=== PATIENT | female | born 1980 | race Caucasian/White ===

== ENCOUNTER 2020-01-08 21:17 | Emergency (ER) | payer SELFPAY ==
[2020-01-08] MEDS ORDERED: NA CHLORIDE 0.9% 1,000 ML ONE (21:51)
[2020-01-08 22:30] LABS: Absolute Lymphocytes (CBC) 2.9 K/uL (0.7-4.9); Basophils % 0.4 % (0-1.3); Hematocrit 36.3 % (36.0-45.0); Lymphocytes % 29.2 % (15.3-44.8); MPV 7.9 fL (7.6-11.3); RBC Red Blood Cell Count 4.27 M/uL (3.86-4.86)
[2020-01-08 22:36] LABS: Protime INR 0.96
[2020-01-08 22:57] LABS: ALT/SGPT 26 U/L (12-78); AST/SGOT 14 U/L (15-37); Albumin 3.2 g/dL (3.4-5.0); Alkaline Phosphatase 69 U/L (45-117); BUN Blood Urea Nitrogen 11 mg/dL (7-18); Bicarbonate 27 mmol/L (21-32); Bilirubin Direct < 0.1 mg/dL (0-0.2); Bilirubin Total 0.3 mg/dL (0.2-1.0); Glucose Level 84 mg/dL (74-106); Potassium 3.2 mmol/L (3.5-5.1); Protein, Total 7.7 g/dL (6.4-8.2); Sodium Level 136 mmol/L (136-145)
[2020-01-08] MEDS ORDERED: POTASSIUM 25 MEQ EFFERV TAB ONE (23:29)
[2020-01-08] MEDS ORDERED: NA CHLORIDE 0.9% 100 ML IV ONE (23:29)
[2020-01-08] MEDS ORDERED: LEVETIRACETAM 500 MG/5 ML VIAL IV ONE (23:29)
[2020-01-09] MEDS ORDERED: NA CHLORIDE 0.9% 1,000 ML ONE (00:16)
--- NOTE | 2020-01-09 00:30 | EDPHYS ---
Physician Documentation [facility] Name: Hodan Quinonez Age: 39 yrs Sex: Female : 1980 Arrival Date: 01/08/2020 Time: 21:19 Bed 6 Private MD: Ryan Salazar HPI: 01/07 22:54 This 39 yrs old Female presents to ER via EMS with complaints of Seizure. darshan 22:54 The patient presents after having a single isolated seizure. Character of seizure(s): darshan Loss of consciousness: the patient experienced loss of consciousness, Motor activity: generalized. Seizure onset: just prior to arrival. Context: the seizure(s) was witnessed, by no one. Seizure Hx: the patient has no previous seizure history. Associated injury: The patient did not suffer any apparent associated injury. EMS care: none. Current symptoms: Currently, the patient is not experiencing any symptoms, the patient feels back to baseline. The patient has experienced similar episodes in the past, several times. 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 - Social history:: Smoking status: Patient reports the use of cigarette tobacco products, smokes one pack cigarettes per day. Patient uses street drugs, heroin, Patient/guardian denies using alcohol. - Family history:: not pertinent. ROS: 22:54 Constitutional: Negative for fever, chills, and weight loss, Eyes: Negative for injury, darshan pain, redness, and discharge, ENT: Negative for injury, pain, and discharge, Neck: Negative for injury, pain, and swelling, Cardiovascular: Negative for chest pain, palpitations, and edema, Respiratory: Negative for shortness of breath, cough, wheezing, and pleuritic chest pain, Abdomen/GI: Negative for abdominal pain, nausea, vomiting, diarrhea, and constipation, Back: Negative for injury and pain, : Negative for injury, bleeding, discharge, and swelling, MS/Extremity: Negative for injury and deformity, Skin: Negative for injury, rash, and discoloration, Psych: Negative for depression, anxiety, suicide ideation, homicidal ideation, and hallucinations, Allergy/Immunology: Negative for hives, rash, and allergies, Endocrine: Negative for neck swelling, polydipsia, polyuria, polyphagia, and marked weight changes, Hematologic/Lymphatic: Negative for swollen nodes, abnormal bleeding, and unusual bruising. 22:54 Neuro: Positive for seizure activity. Exam: 22:54 Constitutional: This is a well developed, well nourished patient who is awake, alert, darshan and in no acute distress. Head/Face: Normocephalic, atraumatic. Eyes: Pupils equal round and reactive to light, extra-ocular motions intact. Lids and lashes normal. Conjunctiva and sclera are non-icteric and not injected. Cornea within normal limits. Periorbital areas with no swelling, redness, or edema. ENT: Nares patent. No nasal discharge, no septal abnormalities noted. Tympanic membranes are normal and external auditory canals are clear. Oropharynx with no redness, swelling, or masses, exudates, or evidence of obstruction, uvula midline. Mucous membranes moist. Neck: Trachea midline, no thyromegaly or masses palpated, and no cervical lymphadenopathy. Supple, full range of motion without nuchal rigidity, or vertebral point tenderness. No Meningismus. Chest/axilla: Normal chest wall appearance and motion. Nontender with no deformity. No lesions are appreciated. Cardiovascular: Regular rate and rhythm with a normal S1 and S2. No gallops, murmurs, or rubs. Normal PMI, no JVD. No pulse deficits. Respiratory: Lungs have equal breath sounds bilaterally, clear to auscultation and percussion. No rales, rhonchi or wheezes noted. No increased work of breathing, no retractions or nasal flaring. Abdomen/GI: Soft, non-tender, with normal bowel sounds. No distension or tympany. No guarding or rebound. No evidence of tenderness throughout. Back: No spinal tenderness. No costovertebral tenderness. Full range of motion. Female : Normal external genitalia. Skin: Warm, dry with normal turgor. Normal color with no rashes, no lesions, and no evidence of cellulitis. MS/ Extremity: Pulses equal, no cyanosis. Neurovascular intact. Full, normal range of motion. Neuro: Awake and alert, GCS 15, oriented to person, place, time, and situation. Cranial nerves II-XII grossly intact. Motor strength 5/5 in all extremities. Sensory grossly intact. Cerebellar exam normal. Normal gait. Psych: Awake, alert, with orientation to person, place and time. Behavior, mood, and affect are within normal limits. 01/08 00:13 ECG was reviewed by the Attending Physician. [facility] Vital Signs: 01/07 21:15 BP 140 / 83; Pulse 92; Resp 16; Temp 98.3; Pulse Ox 100% ; Weight 77.11 kg; Pain 5/10; rr5 23:00 BP 131 / 78; Pulse 76; Resp 16; Pulse Ox 100% ; rr5 23:45 BP 124 / 77; Pulse 78; Resp 16; Pulse Ox 100% on R/A; lp1 01/08 00:30 BP 118 / 77; Pulse 76; Resp 16; Pulse Ox 99% on R/A; lp1 01:30 BP 114 / 76; Pulse 76; Resp 14; Pulse Ox 100% on R/A; lp1 Marilyn Coma Score: 01/07 21:30 Eye Response: spontaneous(4). Verbal Response: oriented(5). Motor Response: obeys lp1 commands(6). Total: 15. MDM: 21:34 Patient medically screened. darshan 22:56 Differential diagnosis: drug overdose, cardiac arrhythmia, seizure. Data reviewed: [facility] vital signs, nurses notes, lab test result(s), EKG. Data interpreted: monitoring engineer: rate is 92 beats/min, rhythm is regular, Pulse oximetry: on room air is 100 %. Test interpretation: by ED physician or midlevel provider: ECG, plain radiologic studies. Counseling: I had a detailed discussion with the patient and/or guardian regarding: the historical points, exam findings, and any diagnostic results supporting the discharge/admit diagnosis, lab results, radiology results, the need for outpatient follow up, for definitive care, a neurologist. 01/07 21:37 Order name: Acetaminophen; Complete Time: 22:59 [facility] 01/07 21:37 Order name: Basic Metabolic Panel; Complete Time: 22:59 [facility] 01/07 21:37 Order name: CBC with Diff; Complete Time: 22:54 [facility] 01/07 21:37 Order name: ETOH Level; Complete Time: 22:59 [facility] 01/07 21:37 Order name: Hepatic Function; Complete Time: 22:59 [facility] 01/07 21:37 Order name: PT-INR; Complete Time: 22:54 [facility] 01/07 21:37 Order name: Ptt, Activated; Complete Time: 22:54 [facility] 01/07 21:37 Order name: Salicylate; Complete Time: 22:54 [facility] 01/07 21:37 Order name: Urine Drug Screen [facility] 01/08 00:29 Order name: Urine Culture [facility] 01/08 00:32 Order name: Urine Dipstick--Ancillary (enter results) [facility] 01/08 00:32 Order name: Urine --Ancillary (enter results) [facility] 01/07 21:37 Order name: Urine Test (obtain specimen); Complete Time: 00:33 [facility] 01/07 21:37 Order name: EKG; Complete Time: 21:37 [facility] 01/07 21:37 Order name: EKG - Nurse/Tech; Complete Time: 21:47 [facility] 01/07 21:37 Order name: IV Saline Lock; Complete Time: 22:23 [facility] 01/07 21:37 Order name: Labs collected and sent; Complete Time: 22:23 [facility] 01/07 21:37 Order name: Urine Dipstick-Ancillary (obtain specimen); Complete Time: 00:33 [facility] 01/07 21:37 Order name: Seizure Precautions; Complete Time: 21:41 [facility] EC/03 00:13 Rate is 81 beats/min. Rhythm is regular. QRS [place] is Normal. [place] interval is normal. QRS darshan interval is normal. QT interval is normal. No Q waves. T waves are Normal. No ST changes noted. Clinical impression: NSR w/ Non-specific ST/T Changes and No evidence of ischemia. Interpreted by me. Reviewed by me. Administered Medications: 01/07 22:21 Drug: NS 0.9% 1000 ml Route: IV; Rate: 1 bolus; Site: right upper arm; bb 01/08 00:07 Follow up: IV Status: Completed infusion; IV Intake: 1000ml lp1 01/07 23:20 Drug: Keppra 1000 mg Route: IV; Rate: per protocol; Site: right upper arm; lp1 23:41 Follow up: IV Status: Completed infusion lp1 23:20 Drug: Potassium Effervescent Tablet 25 mEq Route: PO; lp1 01/08 00:31 Follow up: Response: No adverse reaction lp1 01/07 23:36 Not Given (Med not available): Trileptal 600 mg PO once lp1 01/08 00:04 Drug: NS 0.9% 1000 ml Route: IV; Rate: 1 bolus; Site: right upper arm; lp1 01:10 Follow up: IV Status: Completed infusion; IV Intake: 1000ml lp1 00:33 Drug: Rocephin 1 grams Route: IV; Rate: per protocol; Site: right upper arm; lp1 01:33 Follow up: Response: No adverse reaction; IV Status: Completed infusion; IV Intake: [id number] 00:33 Drug: Cipro 500 mg Route: PO; lp1 01:33 Follow up: Response: No adverse reaction lp1 Disposition: 01/09/20 00:29 Discharged to Home. Impression: Epilepsy and recurrent seizures, Hypokalemia, Urinary tract infection, site not specified. - Condition is Stable. - Discharge Instructions: Potassium Content of Foods, Seizure, Adult, Urinary Tract Infection, Adult, Urinary Tract Infection, Adult, [id number], Seizure, Adult, [id number], Hypokalemia. - Prescriptions for Keppra 500 mg Oral Tablet - take 1 tablet by ORAL route every 12 hours; 20 tablet. Cipro 250 mg Oral Tablet - take 1 tablet by ORAL route every 12 hours; 14 tablet. - Medication Reconciliation Form, Thank You Letter, Antibiotic Education, Prescription Opioid Use form. - Follow up: Private Physician; When: 2 - 3 days; Reason: Recheck today's complaints, Continuance of care, Re-evaluation by your physician. Follow up: Jean Marie Servin; When: 2 - 3 days; Reason: Recheck today's complaints, Re-evaluation by your physician. - Problem is new. - Symptoms have improved. Signatures: Dispatcher [employer] EDMS Ryan Bauer MD MD cha Ballard, Brenda RN RN bb Annette Edward RN RN lp1 Armand Whatley RN RN rr5 Corrections: (The following items were deleted from the chart) 02:30 00:29 01/09/2020 00:29 Discharged to Home. Impression: Epilepsy and recurrent seizures; lp1 Hypokalemia; Urinary tract infection, site not specified. Condition is Stable. Discharge Instructions: Seizure, Adult, Seizure, Adult, Eoro-om-Cixx, Potassium Content of Foods, Hypokalemia. Prescriptions for Keppra 500 mg Oral Tablet - take 1 tablet by ORAL route every 12 hours; 20 tablet. and Forms are Medication Reconciliation Form, Thank You Letter, Antibiotic Education, Prescription Opioid Use. Follow up: Private Physician; When: 2 - 3 days; Reason: Recheck today's complaints, Continuance of care, Re-evaluation by your physician. Follow up: Jean Marie Servin; When: 2 - 3 days; Reason: Recheck today's complaints, Re-evaluation by your physician. Problem is new. Symptoms have improved. darshan
--- NOTE | 2020-01-09 00:30 | ER ---
Nurse's Notes [facility] Name: Hodan Quinonez Age: 39 yrs Sex: Female : 1980 Arrival Date: 01/08/2020 Time: 21:19 Bed 6 Private MD: Diagnosis: Epilepsy and recurrent seizures;Hypokalemia;Urinary tract infection, site not specified Presentation: 01/07 21:15 Chief complaint: EMS states: patient had 2 episodes of witnessed seizure 20 minutes ago rr5 in [facility]. lasted approximate 4 minutes each seizure. 21:15 Coronavirus screen: Client denies travel out of the [place] in the last 14 days. At this rr5 time, the client does not indicate any symptoms associated with coronavirus-19. The client reports previous COVID testing was negative. a week ago. Ebola Screen: Patient negative for fever greater than or equal to 101.5 degrees Fahrenheit, and additional compatible Ebola Virus Disease symptoms Patient denies exposure to infectious person. Patient denies travel to an Ebola-affected area in the 21 days before illness onset. Initial Sepsis Screen: Does the patient meet any 2 criteria? No. Patient's initial sepsis screen is negative. Does the patient have a suspected source of infection? No. Patient's initial sepsis screen is negative. Risk Assessment: Do you want to hurt yourself or someone else? Patient reports no desire to harm self or others. Onset of symptoms was January 08, 2020. 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 - Social history:: Smoking status: Patient reports the use of cigarette tobacco products, smokes one pack cigarettes per day. Patient uses street drugs, heroin, Patient/guardian denies using alcohol. - Family history:: not pertinent. Screenin:29 Abuse screen: Denies threats or abuse. Denies injuries from another. Nutritional rr5 screening: No deficits noted. Tuberculosis screening: No symptoms or risk factors identified. Fall Risk Secondary diagnosis (15 points) seizures, IV access (20 points). Total [place] Fall Scale indicates Low Risk Score (25-44 pts). Fall prevention measures have been instituted. Side Rails Up X 2 Frequent Obs/Assesments occuring As available Patient and Family Educated on Fall Prevention Program and strategies. Assessment: 21:28 General: Appears in no apparent distress. comfortable, Behavior is calm, cooperative, rr5 appropriate for age. Pain: Complains of pain in right leg and left leg Pain currently is 5 out of 10 on a pain scale. Quality of pain is described as aching, Is intermittent. Neuro: Level of Consciousness is awake, alert, obeys commands, Oriented to person, place, time, situation. Cardiovascular: Capillary refill < 3 seconds Patient's skin is warm and dry. Respiratory: Airway is patent Respiratory effort is even, unlabored, Respiratory pattern is regular, symmetrical. GI: No signs and/or symptoms were reported involving the gastrointestinal system. : No signs and/or symptoms were reported regarding the genitourinary system. EENT: No signs and/or symptoms were reported regarding the EENT system. Derm: Skin is intact, is healthy with good turgor, Skin temperature is warm. Musculoskeletal: Circulation, motion, and sensation intact. Capillary refill < 3 seconds, Reports pain in right leg and left leg. 22:30 Reassessment: Patient appears in no apparent distress at this time. Patient and/or lp1 family updated on plan of care and expected duration. Pain level reassessed. Patient resting, eyes closed, respirations even, unlabored. 23:30 Reassessment: Patient appears in no apparent distress at this time. Patient and/or lp1 family updated on plan of care and expected duration. Pain level reassessed. Patient is alert, oriented x 3, equal unlabored respirations, skin warm/dry/pink. Patient aware of need for urine sample. 01/08 00:30 Reassessment: Patient appears in no apparent distress at this time. Assisted patient to [facility] bathroom via . 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 02:00 Reassessment: Patient appears in no apparent distress at this time. Patient is alert, lp1 oriented x 3, equal unlabored respirations, skin warm/dry/pink. Neuro: Gait is steady. Vital Signs: 01/07 21:15 BP 140 / 83; Pulse 92; Resp 16; Temp 98.3; Pulse Ox 100% ; Weight 77.11 kg; Pain 5/10; rr5 23:00 BP 131 / 78; Pulse 76; Resp 16; Pulse Ox 100% ; rr5 23:45 BP 124 / 77; Pulse 78; Resp 16; Pulse Ox 100% on R/A; lp1 01/08 00:30 BP 118 / 77; Pulse 76; Resp 16; Pulse Ox 99% on R/A; lp1 01:30 BP 114 / 76; Pulse 76; Resp 14; Pulse Ox 100% on R/A; lp1 Marilyn Coma Score: 01/07 21:30 Eye Response: spontaneous(4). Verbal Response: oriented(5). Motor Response: obeys lp1 commands(6). Total: 15. ED Course: 21:19 Patient arrived in ED. rr5 21:23 Triage completed. rr5 21:25 Arm band placed on right wrist. rr5 21:26 Armand Whatley, RN is Primary Nurse. rr5 21:28 Annette Edward, RN is Primary Nurse. lp1 21:30 Patient has correct armband on for positive identification. Bed in low position. Call lp1 light in reach. Side rails up X2. Seizure precautions initiated. 21:30 electronic device monitor on. Pulse ox on. NIBP on. lp1 21:34 Ryan Bauer MD is Attending Physician. darshan 21:50 Missed attempt(s): 24 gauge in left forearm. lp1 22:00 Missed attempt(s): 20 gauge in right antecubital area. with ultrasound. lp1 22:15 Initial lab(s) drawn, by me, sent to lab. Accessed peripheral vein via ultrasound, bb utilizing dynamic ultrasound technique using 18G Nexia IV Catheter per hospital protocol. Good blood return. Flushes easily. 01/08 00:12 No provider procedures requiring assistance completed. lp1 00:29 Jean Marie Servin MD is Referral Physician. darshan 01:34 IV discontinued, No redness/swelling at site. Pressure dressing applied. lp1 Administered Medications: 01/07 22:21 Drug: NS 0.9% 1000 ml Route: IV; Rate: 1 bolus; Site: right upper arm; bb 01/08 00:07 Follow up: IV Status: Completed infusion; IV Intake: 1000ml lp1 01/07 23:20 Drug: Keppra 1000 mg Route: IV; Rate: per protocol; Site: right upper arm; lp1 23:41 Follow up: IV Status: Completed infusion lp1 23:20 Drug: Potassium Effervescent Tablet 25 mEq Route: PO; lp1 01/08 00:31 Follow up: Response: No adverse reaction lp1 01/07 23:36 Not Given (Med not available): Trileptal 600 mg PO once lp1 01/08 00:04 Drug: NS 0.9% 1000 ml Route: IV; Rate: 1 bolus; Site: right upper arm; lp1 01:10 Follow up: IV Status: Completed infusion; IV Intake: 1000ml lp1 00:33 Drug: Rocephin 1 grams Route: IV; Rate: per protocol; Site: right upper arm; lp1 01:33 Follow up: Response: No adverse reaction; IV Status: Completed infusion; IV Intake: [id number] 00:33 Drug: Cipro 500 mg Route: PO; lp1 01:33 Follow up: Response: No adverse reaction lp1 Intake: 00:07 IV: 1000ml; Total: 1000ml. lp1 01:10 IV: 1000ml; Total: 2000ml. lp1 01:33 IV: 10ml; Total: 2010ml. lp1 Outcome: 00:29 Discharge ordered by . darshan 01:55 Discharged to home with friend. lp1 01:55 Condition: good 01:55 Discharge instructions given to patient, Instructed on discharge instructions, follow up and referral plans. medication usage, Demonstrated understanding of instructions, follow-up care, medications, Prescriptions given X 2. 02:00 Patient left the ED. lp1 Addendum: 01/12/2020 10:26 Addendum: Culture Results: Positive urine culture. No further action required. Bacteria i w sensitive to prescribed antibiotic. Signatures: Ryan Bauer MD MD cha Ballard, Brenda, RN RN bb Tawny Avila, RN RN iw Annette Edward RN RN lp1 Armand Whatley RN RN rr5 Corrections: (The following items were deleted from the chart) 01/08 02:32 02:30 Patient left the ED. lp1 lp1
[2020-01-09 00:34] LABS: Urine Blood TRACE (NEG); Urine Glucose NEGATIVE (NEG); Urine Protein 1+ (NEG); Urine Specific Gravity 1.025 (1.005-1.030); Urine pH 5.5 (5.0-7.0)
[2020-01-09] MEDS ORDERED: CIPROFLOXACIN HCL 500 MG TAB ONE (00:45)
[2020-01-09] MEDS ORDERED: CEFTRIAXONE/SWI 1gm 1 GM/10 ML SYR ONE (00:45)
[2020-01-09 00:47] LABS: Barbiturates NEGATIVE (NEGATIVE); Benzodiazepines NEGATIVE (NEGATIVE); Cocaine NEGATIVE (NEGATIVE); METHAMPHETAM NEGATIVE (NEGATIVE); Methadone NEGATIVE (NEGATIVE); Opiates NEGATIVE (NEGATIVE); Phencyclidine NEGATIVE (NEGATIVE); THC Cannibis POSITIVE (NEGATIVE)
[2020-01-09 02:40] VITALS: O2SAT 100
[2020-01-09 02:49] VITALS: BP 124/77
--- NOTE | 2020-01-09 08:20 | EKG ---
Test Date: 2020-01-08 Test Time: 21:37:12 Projection Technician: NEHA MEASUREMENT RESULTS: Intervals: Rate: 81 SD: 148 QRSD: 100 QT: 394 QTc: 457 [place]: P: 49 SD: 148 QRS: 45 T: 61 INTERPRETIVE STATEMENTS: Normal sinus rhythm Possible Left atrial enlargement Borderline ECG No previous ECG available for comparison Electronically Signed On 01-09-20 08:19:17 CDT by Evan Marie
--- OUTSIDE RECORDS SUMMARY | 2020-01-13 21:55 | XMS REPORT | Continuity of Care Document ---
:1980 Author Organization Formerly [facility] t Address [address] [place] [address] Care Team Providers Name Role Phone UNKNOWN Primary Care Physician Unavailable ALEJANDRINA CAMARA M.D. Attending Clinician Unavailable ALEJANDRINA CAMARA M.D. Admitting Clinician Unavailable Payers Payer Name Policy Type Policy Number Effective Date Expiration Date S ource Problems This patient has no known problems. Allergies, Adverse Reactions, Alerts Allergy Allergy Status Severity Reaction(s) Onset Inactive Treating Comm ents Source Name Type Date Date Clinician [place] DA Active SV [facility] ins 9-11 [facility] e [facility] [place] DA Active SV 2017-04 [facility] ins 1-28 [place] 00:00: Brennan 00 [facility] Pen[place]ill DA Active PR 2016-04 [facility] ins 0-17 [place] 00:00: [facility] 00 [facility] l Medications This patient has no known medications. Procedures This patient has no known procedures. Encounters Start End Encounter Admission Attending Care Care Encounter Source Date/Time Date/Time Type Type Clinicians Facility Department ID 2017-05-06 2017-05-10 Inpatient Butch CAMARA [facility] MED [id number] 17 [facility] 02:25:00 13:42:00 Arpit NELSON M.D. [facility] 2016-08-29 2016-10-20 [facility] [id number] [address] [place] [address] 00:00:00 00:00:00 [facility] 2016-10-11 2016-10-11 Outpatient [facility] [id number] [address] [place] [address] 10:45:01 10:45:01 [facility] Results Test Description Test Time Test Comments Results Result Comments Source BASIC METABOLIC PANEL 2019-05-22 08:14:00 Test Item Value Reference Range Interpretation Comme nts SODIUM (test code = NA) 141 mmol/L 136-145 N POTASSIUM (test code = K) 3.8 mmol/L 3.5-5.1 N CHLORIDE (test code = CL) 105.0 mmol/L 98-107 N CARBON DIOXIDE (test code = 27.0 mmol/L 21-32 N CO2) ANION GAP (test code = GAP) 12.8 10-20 N GLUCOSE (test code = GLU) 80 mg/dL 74-106 N BLOOD UREA NITROGEN (test code 19 mg/dL 7-18 H = BUN) GLOMERULAR FILTRATION RATE > 60 mL/min >=60 E stimated GFR by using (test code = GFR) Modified M DRD formula.Chronic kidney disease is defined as either kidney d amageor GFR <60 mL/min/1.73 m2 for >3 months. CREATININE (test code = CREAT) 0.60 mg/dL 0.55-1.02 N Note change in reference range due to ch bertha in reagent. BUN/CREATININE RATIO (test code 31.7 10-20 H = BUN/CREA) CALCIUM (test code = CA) 9.4 mg/dL 8.5-10.1 N [V.LAB. 05/22/19 0051]BASIC METABOLIC [id number] 08:10:00 Test Item Value Reference Range Interpretation Comments SODIUM (test code = NA) 141 mmol/L 136-145 N POTASSIUM (test code = K) 3.8 mmol/L 3.5-5.1 N CHLORIDE (test code = CL) 105.0 mmol/L 98-107 N CARBON DIOXIDE (test code = CO2) mmol/L 21-32 ANION GAP (test code = GAP) 10-20 GLUCOSE (test code = GLU) mg/dL 74-106 BLOOD UREA NITROGEN (test code = mg/dL 7-18 BUN) GLOMERULAR FILTRATION RATE (test mL/min >=60 code = GFR) CREATININE (test code = CREAT) mg/dL 0.55-1.02 BUN/CREATININE RATIO (test code 10-20 = BUN/CREA) CALCIUM (test code = CA) mg/dL 8.5-10.1 [V.LAB. 05/22/19 0051]CBC W/AUTO [id number] 07:51:00 Test Item Value Reference Range Interpretation Comments WHITE BLOOD CELL (test 9.5 K/mm3 4.5-12.5 N code = WBC) RED BLOOD CELL (test 4.86 mill/mm3 3.7-5.2 N code = RBC) HEMOGLOBIN (test code 13.4 gram/dL 11.5-15.5 N = HGB) HEMATOCRIT (test code 41.2 % 36.0-46.0 N = HCT) MEAN CELL VOLUME (test 84.8 fL 80-98 N code = MCV) MEAN CELL HGB (test 27.6 picogram 27.0-33.0 N code = MCH) MEAN CELL HGB 32.5 gram/dL 33.0-36.0 L CONCETRATION (test code = MCHC) RED CELL DISTRIBUTION 13.3 % 11.6-16.2 N WIDTH (test code = RDW) RED CELL DISTRIBUTION 41.7 fL 37.0-51.0 N WIDTH SD (test code = RDW-SD) PLATELET COUNT (test 420 K/mm3 150-450 RESULT VERIFIED BY code = PLT) REPEAT ANALYSIS MEAN PLATELET VOLUME 9.5 fL 6.7-11.0 N (test code = MPV) NEUTROPHIL % (test 70.2 % 39.0-69.0 H code = NT%) IMMATURE GRANULOCYTE % 0.2 % 0.0-5.0 N (test code = IG%) LYMPHOCYTE % (test 22.4 % 25.0-55.0 L code = LY%) MONOCYTE % (test code 6.2 % 0.0-10.0 N = MO%) EOSINOPHIL % (test 0.6 % 0.0-5.0 N code = EO%) BASOPHIL % (test code 0.4 % 0.0-1.0 N = BA%) NUCLEATED RBC % (test 0.0 % 0-0 N code = NRBC%) NEUTROPHIL # (test 6.68 K/mm3 1.8-7.7 N code = NT#) IMMATURE GRANULOCYTE # 0.02 x10 3/uL 0-0.03 N (test code = IG#) LYMPHOCYTE # (test 2.13 K/mm3 1.0-5.0 N code = LY#) MONOCYTE # (test code 0.59 K/mm3 0-0.8 N = MO#) EOSINOPHIL # (test 0.06 K/mm3 0.0-0.5 N code = EO#) BASOPHIL # (test code 0.04 K/mm3 0.0-0.2 N = BA#) NUCLEATED RBC # (test 0.00 K/mm3 0.0-0.1 N code = NRBC#) [V.LAB. 05/22/19 0051]BASIC METABOLIC [id number] 22:41:00 Test Item Value Reference Range Interpretation Comments SODIUM (test code = 138 mmol/L 136-145 N NA) POTASSIUM (test code 3.7 mmol/L 3.5-5.1 N = K) CHLORIDE (test code = 106.0 mmol/L 98-107 N CL) CARBON DIOXIDE (test 25.0 mmol/L 21-32 N code = CO2) ANION GAP (test code 10.7 10-20 N = GAP) GLUCOSE (test code = 118 mg/dL 74-106 H GLU) BLOOD UREA NITROGEN 9 mg/dL 7-18 N (test code = BUN) GLOMERULAR FILTRATION > 60 mL/min >=60 Estima anastasiia GFR by RATE (test code = using Chung fied MDRD GFR) formula.Chronic kidney disease is defined as ei er kidney damageor GFR <60 mL/min/1.73 m2 for >3 months. CREATININE (test code 0.50 mg/dL 0.55-1.02 L Note change in = CREAT) reference range due to change in reagent. BUN/CREATININE RATIO 18.0 10-20 N (test code = BUN/CREA) CALCIUM (test code = 8.9 mg/dL 8.5-10.1 N CA) HEPATIC FUNCTION [id number] 22:41:00 Test Item Value Reference Range Interpretation Comments TOTAL PROTEIN (test 8.0 gram/dL 6.4-8.2 N code = PROT) ALBUMIN (test code = 3.2 g/dL 3.4-5.0 L ALB) GLOBULIN (test code = 4.8 gram/dL 2.7-4.2 H GLOB) ALBUMIN/GLOBULIN RATIO 0.7 0.75-1.50 L (test code = A/G) BILIRUBIN TOTAL (test 0.20 mg/dL 0.0-1.0 N code = BILT) BILIRUBIN DIRECT (test 0.08 mg/dL 0.0-0.20 N code = BILD) SGOT/AST (test code = 37 IUnit/L 15-37 N AST) SGPT/ALT (test code = 28 IUnit/L 12-78 N ALT) ALKALINE PHOSPHATASE 76 IUnit/L 45-117 N Note change in TOTAL (test code = reference range due ALKP) to change in reagent. [id number] 22:41:00 Test Item Value Reference Range Interpretation Comments LIPASE (test code = LIP) 100 U/L 73.0-393.0 N HCG SERUM [id number] 22:41:00 Test Item Value Reference Range Interpretation Comments HCG SERUM QUAL (test NEGATIVE NEGATIVE This HC GQL test is NOT code = HCGQL) applicable for MALE patients.Check with nurse about probable order error.If Tumor Marker Test needed, nu rse should order test "HCG TU"(Test #550.45532)---- - [id number] 22:41:00 Test Item Value Reference Range Interpretation Comments TROPONIN-I (test code = TROPI) <0.015 ng/mL 0-0.045 N [id number] 22:41:00 Test Item Value Reference Range Interpretation Comments ALCOHOL (test code < 3 mg/dL 0.0-3.0 N --------- --------INTERPRE = ALC) TIVE DATA NOTE: POSITIVE SCREEN ING RESULTS SHOULD BE CONSIDERED PRESUMPTIVE.WHE N COLLECTED FOR M EDICAL PURPOSES ONLY. SPECIMEN WILL NOTBE ROBERT ECTED BY CHAIN OF CUSTOD Y.IF A CONFIRMATION OF POSITIVE RESULTS IS KATHARINA RED, ACONFIRMATION T EST MUST BE REQUESTED BY THE PHYSICIAN AT AN ADDITIONAL [facility]. BASIC METABOLIC [id number] 22:31:00 Test Item Value Reference Range Interpretation Comments SODIUM (test code = NA) 138 mmol/L 136-145 N POTASSIUM (test code = K) 3.7 mmol/L 3.5-5.1 N CHLORIDE (test code = CL) 106.0 mmol/L 98-107 N CARBON DIOXIDE (test code = CO2) mmol/L 21-32 ANION GAP (test code = GAP) 10-20 GLUCOSE (test code = GLU) mg/dL 74-106 BLOOD UREA NITROGEN (test code = mg/dL 7-18 BUN) GLOMERULAR FILTRATION RATE (test mL/min >=60 code = GFR) CREATININE (test code = CREAT) mg/dL 0.55-1.02 BUN/CREATININE RATIO (test code 10-20 = BUN/CREA) CALCIUM (test code = CA) mg/dL 8.5-10.1 HEPATIC FUNCTION [id number] 22:31:00 Test Item Value Reference Range Interpretation Comments TOTAL PROTEIN (test code = PROT) gram/dL 6.4-8.2 ALBUMIN (test code = ALB) g/dL 3.4-5.0 GLOBULIN (test code = GLOB) gram/dL 2.7-4.2 ALBUMIN/GLOBULIN RATIO (test code = 0.75-1.50 A/G) BILIRUBIN TOTAL (test code = BILT) mg/dL 0.0-1.0 BILIRUBIN DIRECT (test code = BILD) mg/dL 0.0-0.20 SGOT/AST (test code = AST) IUnit/L 15-37 SGPT/ALT (test code = ALT) IUnit/L 12-78 ALKALINE PHOSPHATASE TOTAL (test IUnit/L 45-117 code = ALKP) [id number] 22:31:00 Test Item Value Reference Range Interpretation Comments LIPASE (test code = LIP) U/L 73.0-393.0 HCG SERUM [id number] 22:31:00 Test Item Value Reference Range Interpretation Comments HCG SERUM QUAL (test code = HCGQL) NEGATIVE [id number] 22:31:00 Test Item Value Reference Range Interpretation Comments TROPONIN-I (test code = TROPI) ng/mL 0-0.045 [id number] 22:31:00 Test Item Value Reference Range Interpretation Comments ALCOHOL (test code = ALC) mg/dL 0-3 BASIC METABOLIC [id number] 22:31:00 Test Item Value Reference Range Interpretation Comments SODIUM (test code = NA) 138 mmol/L 136-145 N POTASSIUM (test code = K) 3.7 mmol/L 3.5-5.1 N CHLORIDE (test code = CL) 106.0 mmol/L 98-107 N CARBON DIOXIDE (test code = CO2) mmol/L 21-32 ANION GAP (test code = GAP) 10-20 GLUCOSE (test code = GLU) mg/dL 74-106 BLOOD UREA NITROGEN (test code = mg/dL 7-18 BUN) GLOMERULAR FILTRATION RATE (test mL/min >=60 code = GFR) CREATININE (test code = CREAT) mg/dL 0.55-1.02 BUN/CREATININE RATIO (test code 10-20 = BUN/CREA) CALCIUM (test code = CA) mg/dL 8.5-10.1 HEPATIC FUNCTION [id number] 22:31:00 Test Item Value Reference Range Interpretation Comments TOTAL PROTEIN (test code = PROT) gram/dL 6.4-8.2 ALBUMIN (test code = ALB) g/dL 3.4-5.0 GLOBULIN (test code = GLOB) gram/dL 2.7-4.2 ALBUMIN/GLOBULIN RATIO (test code = 0.75-1.50 A/G) BILIRUBIN TOTAL (test code = BILT) mg/dL 0.0-1.0 BILIRUBIN DIRECT (test code = BILD) mg/dL 0.0-0.20 SGOT/AST (test code = AST) IUnit/L 15-37 SGPT/ALT (test code = ALT) IUnit/L 12-78 ALKALINE PHOSPHATASE TOTAL (test IUnit/L 45-117 code = ALKP) [id number] 22:31:00 Test Item Value Reference Range Interpretation Comments LIPASE (test code = LIP) U/L 73.0-393.0 HCG SERUM [id number] 22:31:00 Test Item Value Reference Range Interpretation Comments HCG SERUM QUAL (test NEGATIVE NEGATIVE This HC GQL test is NOT code = HCGQL) applicable for MALE patients.Check with nurse about probable order error.If Tumor Marker Test needed, nu rse should order test "HCG TU"(Test #550.09169)---- - [id number] 22:31:00 Test Item Value Reference Range Interpretation Comments TROPONIN-I (test code = TROPI) ng/mL 0-0.045 [id number] 22:31:00 Test Item Value Reference Range Interpretation Comments ALCOHOL (test code = ALC) mg/dL 0-3 - CT HEAD/BRAIN W/O [id number] 22:29:00 Name: JL AGUILERA [facility] : 1980 Age/S: 39 / F [address] [facility] Unit #: [id number] Loc: [place] JAY[place] [address] Phys: Pradip Hoyt MD Acct: [id number] Dis Date: Status: REG ER PHONE #: [phone] Exam Date: 05/20/20192218 FAX #: [phone] Reason: Seizure EXAMS: CPTCODE: [id number] CT HEAD/BRAIN W/O CONT 45330 Exam: CT head without contrast. Location: H 12 History: Seizure Technique: Unenhanced spiral slices were taken from the base of the skull, through the vertex. One or more of the following dose reduction techniques were used: Automated exposure control, adjustment of the mA and/or kV according to patient size, and/or utilization of iterative reconstruction technique. Findings: No acute intracranial abnormality is identified. The brain parenchyma and the CSF spaces are unremarkable. No mass, midline shift, hemorrhage, hydrocephalus or edema is seen. The visualized paranasal sinuses are clear. The mastoid air cells are well pneumatized. The bony calvarium is intact. Impression: 1. No acute intracranial abnormality. 2. Otherwise unremarkable exam. at 2229 Reported and signed by: Pastor Otero M.D. CC: Pradip Hoyt MD Technologist:Nicolette Montemyaor RT(R); SASCHA Clark CTDI: DLP: Trnscb Date/Time: 05/20/2019 (2228) [email or web address] Orig Print D/T: S: 05/20/2019 (3388) PAGE 1 Signed ReportCBC W/O [id number] 22:20:00 Test Item Value Reference Range Interpretation Comments WHITE BLOOD CELL (test code = 7.9 K/mm3 4.5-12.5 N WBC) RED BLOOD CELL (test code = 4.52 mill/mm3 3.7-5.2 N RBC) HEMOGLOBIN (test code = HGB) 12.6 gram/dL 11.5-15.5 N HEMATOCRIT (test code = HCT) 38.2 % 36.0-46.0 N MEAN CELL VOLUME (test code = 84.5 fL 80-98 N MCV) MEAN CELL HGB (test code = MCH) 27.9 picogram 27.0-33.0 N MEAN CELL HGB CONCETRATION 33.0 gram/dL 33.0-36.0 N (test code = MCHC) RED CELL DISTRIBUTION WIDTH 13.1 % 11.6-16.2 N (test code = RDW) PLATELET COUNT (test code = 360 K/mm3 150-450 N PLT) MEAN PLATELET VOLUME (test code 9.5 fL 6.7-11.0 N = MPV) CBC W/O [id number] 22:18:00 Test Item Value Reference Range Interpretation Comments WHITE BLOOD CELL (test code = K/mm3 4.5-12.5 WBC) RED BLOOD CELL (test code = RBC) mill/mm3 3.7-5.2 HEMOGLOBIN (test code = HGB) 12.6 gram/dL 11.5-15.5 N HEMATOCRIT (test code = HCT) 38.2 % 36.0-46.0 N MEAN CELL VOLUME (test code = fL 80-98 MCV) MEAN CELL HGB (test code = MCH) picogram 27.0-33.0 MEAN CELL HGB CONCETRATION (test gram/dL 33.0-36.0 code = MCHC) RED CELL DISTRIBUTION WIDTH % 11.6-16.2 (test code = RDW) PLATELET COUNT (test code = PLT) K/mm3 150-450 MEAN PLATELET VOLUME (test code fL 6.7-11.0 = MPV) - XR CHEST 1 [id number] 19:55:00 FAX: Pradip Hoyt MD [phone] [place]: B St: REG Name: JL AGUILERA [facility] : 1980 Age/S: 39/F [address] Unit#: [id number] Loc: [place] [address] Phys: Pradip Hoyt MD Acct: [id number] Dis Date: Status: REG ER PHONE #: [phone] Exam Date: 05/20/20191914 FAX #: [phone] Reason: Seizure EXAMS: CPT CODE: [id number] XR CHEST 1 V 61706 EXAM: Chest x-ray, one view; INFORMATION: Seizure; IMPRESSION: 1. No evidence of active cardiopulmonary disease. 2. No significant change compared with a study from March 28, 2019. Location code: [facility] at 1954 Reported and signed by: Shawn Lock M.D. CC: Pradip Hoyt MD Technologist: REENA OSORIO RT (R) Trnscrd Date/Time/By: 05/20/2019 (1954) : By: RenGRWOrig Print D/T: S: 05/20/2019 (1957) PAGE 1 Signed ReportCHEMISTRY 8 [id number] 13:32:00 Test Item Value Reference Range Interpretation Comments ISTAT-SODIUM (test code = NAP) MMOL/L 134-147 ISTAT-POTASSIUM (test code = KP) MMOL/L 3.4-5.0 ISTAT-CHLORIDE (test code = CLP) MMOL/L 100-108 ISTAT CARBON DIOXIDE (test code = mmol/L 21-33 N ISTAT-CO2) ISTAT CALCIUM IONIZED (test code = MG/DL 1.12-1.32 ISTAT-SUSAN) ISTAT-GLUCOSE (test code = GLUP) MG/DL 70-110 N ISTAT-BUN (test code = BUNP) MG/DL 7-18 N BEDSIDE CREATININE (test code = MG/DL 0.6-1.3 L CREATBED) GLOMERULAR FILTRATION RATE POC 146 ML/MIN (test code = GFRBED) CHEMISTRY 8 [id number] 13:32:00 Test Item Value Reference Range Interpretation Comments ISTAT-SODIUM (test 136 MMOL/L 134-147 N code = NAP) ISTAT-POTASSIUM (test 3.6 MMOL/L 3.4-5.0 N code = KP) ISTAT-CHLORIDE (test 102 MMOL/L 100-108 N Perform ed by code = CLP) certified opera tor at [facility] ISTAT CARBON DIOXIDE 26.0 mmol/L 21-33 N (test code = ISTAT-CO2) ISTAT CALCIUM IONIZED 1.06 MG/DL 1.12-1.32 L (test code = ISTAT-SUSAN) ISTAT-GLUCOSE (test 96 MG/DL 70-110 N code = GLUP) ISTAT-BUN (test code = 7 MG/DL 7-18 N BUNP) BEDSIDE CREATININE 0.5 MG/DL 0.6-1.3 L (test code = CREATBED) GLOMERULAR FILTRATION 146 ML/MIN RATE POC (test code = GFRBED) HEPATIC FUNCTION [id number] 04:06:00 Test Item Value Reference Range Interpretation Comments TOTAL PROTEIN (test code = PROT) 7.2 g/dL 6.4-8.2 N ALBUMIN (test code = ALB) 3.20 g/dL 3.4-5.0 L BILIRUBIN TOTAL (test code = BILT) 0.3 MG/DL <1.5 N BILIRUBIN DIRECT (test code = 0.10 MG/DL 0.0-0.30 N BILD) BILIRUBIN INDIRECT (test code = 0.20 MG/DL BILIND) SGOT/AST (test code = AST) 68 IUnit/L 15-37 H SGPT/ALT (test code = ALT) 98 IUnit/L 15-65 H ALKALINE PHOSPHATASE TOTAL (test 78 IUnit/L 20-125 N code = ALKP) OXCARBAZEPINE [id number] 04:06:00 Test Item Value Reference Interpretation Comments Range OXCARBAZEPINE 49 ug/mL 10-35 A This test was developed and TRILEPTAL (test its performa nce code = OXCARB) characteristi csdetermined by [facility]. It has not been cleared orappro katerina by the Food and Drug A dministration. Detection Limi t = 1Performed At: [facility] Vkuekbukpn7619 [facility] José Miguel angelEIGHTY [place], [place] [address]Cranym ra David CARTAGENA Ph:[phone] [id number] 04:06:00 Test Item Value Reference Range Interpretation Comments ALCOHOL (test code < 0.003 G/dL <0.003 Ethyl Alc ohol = ALC) Interpretation: 0.100 gm/dL - Legally Intoxic ated 0.300-0.40 0 gm/dL - Severely Into xicated >0.400 gm/dL - Potentially LethalResults a re for Medical purpose s only, and not for Leg al orEmployment ev aluation purposes. - CT HEAD/BRAIN W/O [id number] 23:27:00 Name: JL AGUILERA [facility] : 1980 Age/S: 39 / F [address] [place] [address] Unit #: [id number] Loc: [place], [place] Phys: Alpesh Rocha MD Acct: [id number] Dis Date: Status: REG ER PHONE #: [phone] Exam Date: 03/28/2019 2309 FAX #: [phone] Reason: Altered Mental Status EXAMS: CPTCODE: [id number] CT HEAD/BRAIN W/O CONT 06125 Patient: JL AGUILERA. : 1980; Age: 39 years; Gender: Female. MR: [id number]. Ordering physician: Alpesh Rocha MD. CT HEAD WITHOUT INTRAVENOUS CONTR AST: HISTORY: Altered mental status. COMPARISON: CT head 05/28/2017. FINDINGS: Computed tomography of the head was performed utilizing contiguous transaxial sections from the skull base to the vertex without the administration of intravenous contrast. Coronal and sagittal reformatted images were obtained. Examination is limited secondary to excessive patient motion despite repeated imaging. All CT scans at this location are performed using dose optimization technique as appropriate to a performed exam including the following: -Automated exposure control. -Adjustment of mA and/or KV according to patient's size (this includes techniques or standardized protocols for targeted exams where dose is matched to indication/reason for exam; i.e. extremities or head). -Use of iterative reconstruction technique. -Total DLP: 577.08 mGy-cm The ventricles, cortical sulci and basilar cisterns are normal in appearance. There is no evidence of midline shift, mass lesion, intraparenchymal hemorrhage, acute infarction, extra-axial collection or skull fracture. The posterior fossa is unremarkable. The partially visualized orbits and mastoid air cells are unremarkable. Mild mucosal thickening of left sphenoid sinus noted with small polyp versus mucus retention cyst at the anterior aspect of left sphenoid sinus. IMPRESSION: Limited examination as described. No acute intracranial pathology. PAGE 1 Signed Report (CONTINUED) Name: JL AGUILERA [facility] : 1980 Age/S: 39 / F [address] [place] [address] Unit #: [id number] Loc: [place] [address] Phys: Alpesh Rocha MD Acct: [id number] Dis Date: Status: REG ER PHONE #: [phone] Exam Date: 03/28/2019 2309 FAX #: [phone] Reason: Altered Mental Status EXAMS: CPT CODE: [id number] CT HEAD/BRAIN W/O CONT 10096 <Continued> SL: SL-H at 8855 Reported and signed by: Felipe Roy M.D. CC: Alpesh Rocha MD Technologist:RT Milly(R)(CT) CTDI: DLP: Trnscb Date/Time: 03/28/2019 (2324) [email or web address] Orig Print D/T: S: 03/28/2019 (9901) PAGE 2 Signed ReportDRUGS OF ABUSE SCREEN [id number] 23:25:00 Test Item Value Reference Range Interpretation Comments URN COCAINE (test code POSITIVE NEGATIVE A = COCAURN) URN CANNABINOIDS (test NEGATIVE NEGATIVE code = CANNABURN) URN AMPHETAMINE (test NEGATIVE NEGATIVE code = AMPHETURN) URN BARBITURATE (test NEGATIVE NEGATIVE code = BARBITURN) URN BENZODIAZEPINE POSITIVE NEGATIVE A Cut-off v alue:200 (test code = BENZOURN) ng/mL URN OPIATES (test code NEGATIVE NEGATIVE Cut-o ff value:2000 = OPIATURN) ng/mL URN PHENCYCLIDINE (PCP) NEGATIVE NEGATIVE Cuto ffs:Barbiturates (test code = PHENCURN) 200 ng/mLBenzodiaze pines 200 ng/ mLTHC Cannabinoids 50 ng/mLOpiates(Mo rphine) 2000 ng/mLAmphetamin e 1000 ng/mLCocaine 300 ng/ mLPCP phencyclidine 25 ng/mL Unconf irmed screening resul ts shouldnot be us ed for non-medical pur poses. DRUGS OF ABUSE SCREEN [id number] 23:16:00 Test Item Value Reference Range Interpretation Comments URN COCAINE (test code NEGATIVE = COCAURN) URN CANNABINOIDS (test NEGATIVE NEGATIVE code = CANNABURN) URN AMPHETAMINE (test NEGATIVE NEGATIVE code = AMPHETURN) URN BARBITURATE (test NEGATIVE NEGATIVE code = BARBITURN) URN BENZODIAZEPINE NEGATIVE (test code = BENZOURN) URN OPIATES (test code NEGATIVE NEGATIVE Cut-o ff value:2000 = OPIATURN) ng/mL URN PHENCYCLIDINE (PCP) NEGATIVE NEGATIVE Cuto ffs:Barbiturates (test code = PHENCURN) 200 ng/mLBenzodiaze pines 200 ng/ mLTHC Cannabinoids 50 ng/mLOpiates(Mo rphine) 2000 ng/mLAmphetamin e 1000 ng/mLCocaine 300 ng/ mLPCP phencyclidine 25 ng/mL Unconf irmed screening resul ts shouldnot be us ed for non-medical pur poses. URINALYSIS [id number] 23:14:00 Test Item Value Reference Range Interpretation Comments UA COLOR (test code = COLU) CARLOS YEL/STRAW A UA APPEARANCE (test code = APPU) CLOUDY CLEAR A UA GLUCOSE DIPSTICK (test code = NEGATIVE NEGATIVE DGLUU) UA BILIRUBIN DIPSTICK (test code NEGATIVE NEGATIVE = BILU) UA KETONE DIPSTICK (test code = TRACE NEGATIVE A KETU) UA SPECIFIC GRAVITY (test code = 1.023 1.005-1.030 N SGU) UA BLOOD DIPSTICK (test code = NEGATIVE NEGATIVE BRUNA) UA PH DIPSTICK (test code = SHERRY) 8.0 5.0-7.0 H UA PROTEIN DIPSTICK (test code = 1+ NEGATIVE A PROU) UA UROBILINIOGEN DIPSTICK (test 4.0 mg/dL 0.2-1.0 A code = URO) UA NITRITE DIPSTICK (test code = POSITIVE NEGATIVE A JED) UA LEUKOCYTE ESTERASE DIPSTICK 1+ NEGATIVE A (test code = LEUU) UA RBC (test code = RBCU) 0-3 RBC/HPF 0-3 UA WBC NO REFLEX (test code = 4-9 WBC/HPF 0-3 A WBCUCL) UA BACTERIA (test code = BACU) 2+ /HPF NONE SEEN A UA SQUAMOUS CELLS (test code = 0-5 /HPF NONE SEEN SQU) UA MUCUS (test code = MUCU) 2+ /LPF NONE SEEN A HEPATIC FUNCTION [id number] 22:59:00 Test Item Value Reference Range Interpretation Comments TOTAL PROTEIN (test code = PROT) 7.2 g/dL 6.4-8.2 N ALBUMIN (test code = ALB) 3.20 g/dL 3.4-5.0 L BILIRUBIN TOTAL (test code = BILT) 0.3 MG/DL <1.5 N BILIRUBIN DIRECT (test code = 0.10 MG/DL 0.0-0.30 N BILD) BILIRUBIN INDIRECT (test code = 0.20 MG/DL BILIND) SGOT/AST (test code = AST) 68 IUnit/L 15-37 H SGPT/ALT (test code = ALT) 98 IUnit/L 15-65 H ALKALINE PHOSPHATASE TOTAL (test 78 IUnit/L 20-125 N code = ALKP) OXCARBAZEPINE [id number] 22:59:00 Test Item Value Reference Range Interpretation Comments OXCARBAZEPINE TRILEPTAL (test code = OXCARB) [id number] 22:59:00 Test Item Value Reference Range Interpretation Comments ALCOHOL (test code < 0.003 G/dL <0.003 Ethyl Alc ohol = ALC) Interpretation: 0.100 gm/dL - Legally Intoxic ated 0.300-0.40 0 gm/dL - Severely Into xicated >0.400 gm/dL - Potentially LethalResults a re for Medical purpose s only, and not for Leg al orEmployment ev aluation purposes. CBC W/AUTO [id number] 22:42:00 Test Item Value Reference Range Interpretation Comments WHITE BLOOD CELL (test code = 9.20 x10 3/uL 4.5-11.0 N WBC) RED BLOOD CELL (test code = 3.90 x10 6/uL 3.54-5.02 N RBC) HEMOGLOBIN (test code = HGB) 11.4 g/dL 11.0-15.0 N HEMATOCRIT (test code = HCT) 34.1 % 33.0-45.0 N MEAN CELL VOLUME (test code = 87.4 fL 81.0-99.0 N MCV) MEAN CELL HGB (test code = MCH) 29.2 pg 27.0-33.0 N MEAN CELL HGB CONCETRATION 33.4 g/dL 33.0-37.0 N (test code = MCHC) RED CELL DISTRIBUTION WIDTH CV 12.9 % 11.5-14.5 N (test code = RDW) RED CELL DISTRIBUTION WIDTH SD 41.2 fL 37.0-54.0 N (test code = RDW-SD) PLATELET COUNT (test code = 442 x10 3/uL 150-400 H PLT) MEAN PLATELET VOLUME (test code 9.4 fL 7.0-9.0 H = MPV) NEUTROPHIL % (test code = NT%) 61.7 % 56.0-77.0 N IMMATURE GRANULOCYTE % (test 0.3 % 0.0-2.0 N code = IG%) LYMPHOCYTE % (test code = LY%) 28.8 % 14.0-32.0 N MONOCYTE % (test code = MO%) 8.6 % 4.8-9.0 N EOSINOPHIL % (test code = EO%) 0.3 % 0.3-3.7 N BASOPHIL % (test code = BA%) 0.3 % 0.0-2.0 N NUCLEATED RBC % (test code = 0.0 % 0-0 N NRBC%) NEUTROPHIL # (test code = NT#) 5.67 x10 3/uL 2.0-7.6 N IMMATURE GRANULOCYTE # (test 0.03 x10 3/uL 0.00-0.03 N code = IG#) LYMPHOCYTE # (test code = LY#) 2.65 x10 3/uL 1.0-3.8 N MONOCYTE # (test code = MO#) 0.79 x10 3/uL 0.1-0.8 N EOSINOPHIL # (test code = EO#) 0.03 x10 3/uL 0.0-0.2 N BASOPHIL # (test code = BA#) 0.03 x10 3/uL 0.0-0.2 N NUCLEATED RBC # (test code = 0.00 x10 3/uL 0.0-0.1 N NRBC#) MANUAL DIFF REQUIRED (test code NO = MDIFF) - XR CHEST 1 [id number] 22:28:00 FAX: Alpesh Crowe MD [phone] [place]: St: REG Name: JL AGUILERA [facility] : 1980 Age/S: 39/F [address] [place] [address] Unit#: [id number] Loc: [place] [address] Phys: Alpesh Rocha MD Acct: [id number] Dis Date: Status: REG ER PHONE #: [phone] Exam Date: 03/28/2019 2220 FAX #: [phone] Reason: Altered Mental Status EXAMS: CPT CODE: [id number] XR CHEST 1 V 42105 Patient: JL AGUILERA. : 1980; Age: 39 years; Gender: Female. MR: [id number]. Ordering physician: Alpesh Rocha MD. PORTABLE CHEST AP: HISTORY: Altered mental status. COMPARISON: Chest x-ray 12/17/2018. FINDINGS: Portable frontal view of the chest was obtained. The lungs are clear bilaterally. The cardiomediastinal silhouette and pulmonary vasculature are unremarkable. The partially visualized upper abdomen is unremarkable. IMPRESSION: No acute disease in the chest. SL: SL-H at 2228 Reported and signed by: Chely Vanegas CC: Alpesh Rocha MD Technologist: Yi España, RT(R); Marek Chow, RT(R) Trnscrd Date/Time/By: 03/28/2019 (3262) : By: [email or web address] Orig Print D/T: S: 03/28/2019 (4191) PAGE 1 Signed ReportTROPONIN-I [id number] 22:24:00 Test Item Value Reference Range Interpretation Comments TROPONIN-I RAPID 0.00 ng/mL 0.00-0.08 N Performed b y certified (test code = wheelabrator operator at [facility]) [facility] Negative: <= 0.0 8 Positive: >= 0.09An elevated troponin value alone is not sufficient todi agnose a myocardial infa rction. Rather, the pat ient sclinical prese ntation (history, physi sp exam) and ECGshould b e used in conjunction wit h troponin in thediagnosti c evaluation of s uspected myocardial infa rction. Aserial samplin g protocol is recommended to facilitate the identification of temporal changes in trop onin levels characteristic of [place]. LACTIC ACID [id number] 22:15:00 Test Item Value Reference Range Interpretation Comments LACTIC ACID POC 1.9 MMOL/L 0.90-1.70 H Performed by certified (test code = LACTP) wheelabrator operator at [facility] [id number] 15:42:00 Test Item Value Reference Range Interpretation Comments ALCOHOL (test code < 0.003 G/dL <0.003 Ethyl Alc ohol = ALC) Interpretation: 0.100 gm/dL - Legally Intoxic ated 0.300-0.40 0 gm/dL - Severely Into xicated >0.400 gm/dL - Potentially LethalResults a re for Medical purpose s only, and not for Leg al orEmployment ev aluation purposes. BASIC METABOLIC [id number] 15:42:00 Test Item Value Reference Range Interpretation Comments SODIUM (test code = NA) 137 mEq/L 134-147 N POTASSIUM (test code = 3.2 mEq/L 3.4-5.0 L K) CHLORIDE (test code = 104 mEq/L 100-108 N CL) CARBON DIOXIDE (test 30 mEq/L 21-33 N code = CO2) ANION GAP (test code = 6 0-20 N GAP) GLUCOSE (test code = 123 mg/dL 70-110 H GLU) BLOOD UREA NITROGEN 12 mg/dL 7-18 N (test code = BUN) GLOMERULAR FILTRATION 93.6 105-110 L Units of measure = RATE (test code = GFR) ml/mi n/1.73 m2 CREATININE (test code = 0.7 mg/dL 0.6-1.3 N CREAT) CALCIUM (test code = 8.6 mg/dL 8.0-10.5 N CA) HEPATIC FUNCTION [id number] 15:42:00 Test Item Value Reference Range Interpretation Comments TOTAL PROTEIN (test code = PROT) 7.1 g/dL 6.4-8.2 N ALBUMIN (test code = ALB) 3.60 g/dL 3.4-5.0 N BILIRUBIN TOTAL (test code = BILT) 0.4 MG/DL <1.5 N BILIRUBIN DIRECT (test code = 0.10 MG/DL 0.0-0.30 N BILD) BILIRUBIN INDIRECT (test code = 0.30 MG/DL BILIND) SGOT/AST (test code = AST) 15 IUnit/L 15-37 N SGPT/ALT (test code = ALT) 25 IUnit/L 15-65 N ALKALINE PHOSPHATASE TOTAL (test 54 IUnit/L 20-125 N code = ALKP) HCG SERUM [id number] 15:42:00 Test Item Value Reference Range Interpretation Comments HCG SERUM QUAL (test code = SERUM NEGATIVE NEGATIVE HCGQL) BASIC METABOLIC [id number] 15:39:00 Test Item Value Reference Range Interpretation Comments SODIUM (test code = NA) 137 mEq/L 134-147 N POTASSIUM (test code = K) 3.2 mEq/L 3.4-5.0 L CHLORIDE (test code = CL) 104 mEq/L 100-108 N CARBON DIOXIDE (test code = CO2) 30 mEq/L 21-33 N ANION GAP (test code = GAP) 6 0-20 N GLUCOSE (test code = GLU) 123 mg/dL 70-110 H BLOOD UREA NITROGEN (test code = 12 mg/dL 7-18 N BUN) GLOMERULAR FILTRATION RATE (test 105-110 code = GFR) CREATININE (test code = CREAT) mg/dL 0.6-1.3 CALCIUM (test code = CA) 8.6 mg/dL 8.0-10.5 N HEPATIC FUNCTION [id number] 15:39:00 Test Item Value Reference Range Interpretation Comments TOTAL PROTEIN (test code = PROT) g/dL 6.4-8.2 ALBUMIN (test code = ALB) g/dL 3.4-5.0 BILIRUBIN TOTAL (test code = BILT) MG/DL <1.5 BILIRUBIN DIRECT (test code = BILD) MG/DL 0.0-0.30 SGOT/AST (test code = AST) IUnit/L 15-37 SGPT/ALT (test code = ALT) IUnit/L 15-65 ALKALINE PHOSPHATASE TOTAL (test IUnit/L 20-125 code = ALKP) HCG SERUM [id number] 15:39:00 Test Item Value Reference Range Interpretation Comments HCG SERUM QUAL (test code = SERUM NEGATIVE NEGATIVE HCGQL) CBC W/O [id number] 15:34:00 Test Item Value Reference Range Interpretation Comments WHITE BLOOD CELL (test code = 11.16 x10 3/uL 4.5-11.0 H WBC) RED BLOOD CELL (test code = 3.71 x10 6/uL 3.54-5.02 N RBC) HEMOGLOBIN (test code = HGB) 10.8 g/dL 11.0-15.0 L HEMATOCRIT (test code = HCT) 32.9 % 33.0-45.0 L MEAN CELL VOLUME (test code = 88.7 fL 81.0-99.0 N MCV) MEAN CELL HGB (test code = 29.1 pg 27.0-33.0 N MCH) MEAN CELL HGB CONCETRATION 32.8 g/dL 33.0-37.0 L (test code = MCHC) RED CELL DISTRIBUTION WIDTH CV 13.8 % 11.5-14.5 N (test code = RDW) RED CELL DISTRIBUTION WIDTH SD 44.7 fL 37.0-54.0 N (test code = RDW-SD) PLATELET COUNT (test code = 363 x10 3/uL 150-400 N PLT) MEAN PLATELET VOLUME (test 10.0 fL 7.0-9.0 H code = MPV) BASIC METABOLIC [id number] 15:31:00 Test Item Value Reference Range Interpretation Comments SODIUM (test code = NA) mEq/L 134-147 POTASSIUM (test code = K) mEq/L 3.4-5.0 CHLORIDE (test code = CL) mEq/L 100-108 CARBON DIOXIDE (test code = CO2) mEq/L 21-33 ANION GAP (test code = GAP) 0-20 GLUCOSE (test code = GLU) mg/dL 70-110 BLOOD UREA NITROGEN (test code = BUN) mg/dL 7-18 GLOMERULAR FILTRATION RATE (test code 105-110 = GFR) CREATININE (test code = CREAT) mg/dL 0.6-1.3 CALCIUM (test code = CA) mg/dL 8.0-10.5 HEPATIC FUNCTION [id number] 15:31:00 Test Item Value Reference Range Interpretation Comments TOTAL PROTEIN (test code = PROT) g/dL 6.4-8.2 ALBUMIN (test code = ALB) g/dL 3.4-5.0 BILIRUBIN TOTAL (test code = BILT) MG/DL <1.5 BILIRUBIN DIRECT (test code = BILD) MG/DL 0.0-0.30 SGOT/AST (test code = AST) IUnit/L 15-37 SGPT/ALT (test code = ALT) IUnit/L 15-65 ALKALINE PHOSPHATASE TOTAL (test IUnit/L 20-125 code = ALKP) HCG SERUM [id number] 15:31:00 Test Item Value Reference Range Interpretation Comments HCG SERUM QUAL (test code = SERUM NEGATIVE NEGATIVE HCGQL) DRUGS OF ABUSE SCREEN [id number] 14:53:00 Test Item Value Reference Range Interpretation Comments URN COCAINE (test code POSITIVE NEGATIVE A = COCAURN) URN CANNABINOIDS (test POSITIVE NEGATIVE A code = CANNABURN) URN AMPHETAMINE (test NEGATIVE NEGATIVE code = AMPHETURN) URN BARBITURATE (test NEGATIVE NEGATIVE code = BARBITURN) URN BENZODIAZEPINE NEGATIVE NEGATIVE Cut-off v alue:200 (test code = BENZOURN) ng/mL URN OPIATES (test code NEGATIVE NEGATIVE Cut-o ff value:2000 = OPIATURN) ng/mL URN PHENCYCLIDINE (PCP) NEGATIVE NEGATIVE Cuto ffs:Barbiturates (test code = PHENCURN) 200 ng/mLBenzodiaze pines 200 ng/ mLTHC Cannabinoids 50 ng/mLOpiates(Mo rphine) 2000 ng/mLAmphetamin e 1000 ng/mLCocaine 300 ng/ mLPCP phencyclidine 25 ng/mL Unconf irmed screening resul ts shouldnot be us ed for non-medical pur poses. DRUGS OF ABUSE SCREEN [id number] 14:42:00 Test Item Value Reference Range Interpretation Comments URN COCAINE (test code NEGATIVE = COCAURN) URN CANNABINOIDS (test NEGATIVE code = CANNABURN) URN AMPHETAMINE (test NEGATIVE NEGATIVE code = AMPHETURN) URN BARBITURATE (test NEGATIVE NEGATIVE code = BARBITURN) URN BENZODIAZEPINE NEGATIVE NEGATIVE Cut-off v alue:200 (test code = BENZOURN) ng/mL URN OPIATES (test code NEGATIVE NEGATIVE Cut-o ff value:2000 = OPIATURN) ng/mL URN PHENCYCLIDINE (PCP) NEGATIVE NEGATIVE Cuto ffs:Barbiturates (test code = PHENCURN) 200 ng/mLBenzodiaze pines 200 ng/ mLTHC Cannabinoids 50 ng/mLOpiates(Mo rphine) 2000 ng/mLAmphetamin e 1000 ng/mLCocaine 300 ng/ mLPCP phencyclidine 25 ng/mL Unconf irmed screening resul ts shouldnot be us ed for non-medical pur poses. - XR CHEST 1 [id number] 14:29:00 FAX: Carrington Marks DO [phone] [place]: St: REG Name: JL AGUILERA [facility] : 1980 Age/S: 38/F [address] [place] [address] Unit#: [id number] Loc: [place] [address] Phys: Carrington Guidry DO Acct: [id number] Dis Date: Status: REG ER PHONE #: [phone] Exam Date: 12/17/2018 1417 FAX #: [phone] Reason: cough EXAMS: CPT CODE: [id number] XR CHEST 1 V 62074 1 VIEW CXR. PORTABLE EXAM 2:02 PM HISTORY: Cough. COMPARISON: 08/01/2012 chest x-ray. The lungs are clear with nor mal pulmonary vasculature. Cardiomediastinal silhouette normal. No pleural abnormality. Bony thorax intact. IMPRESSION: Normal exam. END OF IMPRESSION SL: [id number] at 1426 Reported and signed by: Sascha Newell M.D. CC: Carrington Guidry DO Technologist: RT Johnny(Soila) Trnherson Date/Time/By: 12/17/2018 (142) : By: Yifan OrigPrint D/T: S: 12/17/2018 (7585) PAGE 1 Signed ReportURINALYSIS [id number] 14:24:00 Test Item Value Reference Range Interpretation Comments UA COLOR (test code = COLU) CARLOS YEL/STRAW A UA APPEARANCE (test code = CLOUDY CLEAR A APPU) UA GLUCOSE DIPSTICK (test code NEGATIVE NEGATIVE = DGLUU) UA BILIRUBIN DIPSTICK (test NEGATIVE NEGATIVE code = BILU) UA KETONE DIPSTICK (test code = TRACE NEGATIVE A KETU) UA SPECIFIC GRAVITY (test code 1.034 1.005-1.030 H = SGU) UA BLOOD DIPSTICK (test code = NEGATIVE NEGATIVE BRUNA) UA PH DIPSTICK (test code = 5.0 5.0-7.0 N SHERRY) UA PROTEIN DIPSTICK (test code 1+ NEGATIVE A = PROU) UA UROBILINIOGEN DIPSTICK (test 0.2 mg/dL 0.2-1.0 code = URO) UA NITRITE DIPSTICK (test code NEGATIVE NEGATIVE = JED) UA LEUKOCYTE ESTERASE DIPSTICK TRACE NEGATIVE A (test code = LEUU) UA RBC (test code = RBCU) 11-20 RBC/HPF 0-3 UA WBC NO REFLEX (test code = 21-50 WBC/HPF 0-3 A WBCUCL) UA BACTERIA (test code = BACU) 2+ /HPF NONE SEEN A UA SQUAMOUS CELLS (test code = 6-10 /HPF NONE SEEN A SQU) UA MUCUS (test code = MUCU) 4+ /LPF NONE SEEN A - DUP VEIN [id number] 13:18:00 Name: JL AGUILERA [facility] : 1980 Age/S: 38 / F [address] [place] [address] Unit #: [id number] Loc: [place] [id number] Phys: Abner Corbin MD Acct: [id number] Dis Date: Status: REG ER PHONE #: [phone] Exam Date: 05/28/2018 1313 FAX #: [phone] Reason: RUE swelling, r/o DVT EXAMS: CPTCODE: [id number] DUP VEIN UNI/LTD 20743 PROCEDURE: UNILATERAL UPPER EXTREMITY VENOUS ULTRASOUND INDICATION: 38-year-old female with right upper extremity edema and pain COMPARISON: None. TECHNIQUE: Sonographic evaluation of the right upper extremity veins was performed using high resolution B- mode imaging, pulse and color Doppler imaging. FINDINGS: The internal jugular, subclavian, axillary, brachial, radial and ulnar veins are patent. The basilic and cephalic veins are patent. Normal venous waveforms. IMPRESSION: 1. No deep venous t hrombosis identified in the right upper extremity. SL: [id number] at 1318 Reported and signed by: Bakari Perez M.D. CC: Abner Corbin MD Technologist: Mckayla Aguiar RDMS(OB)(AB) Trnscb Date/Time: 05/28/2018 (1318) [id number] Orig Print D/T: S: 05/28/2018 (4187) Probe: PAGE 1 Signed ReportCT Brain/Head w/o [id number] 15:13:34Patient: JL AGUILERA Date/Time02/11/2018 15:08 CSTReason for ExamHead injuryReportCT HEAD WITHOUT CONTRASTCLINICAL HISTORY: Head injuryCOMPARISON: None available.TECHNIQUE: 5 mm axial images of the brain were obtained without contrast. Coronal and sagittal reformats were obtained. One or more of the following dose reduction techniques wereused: Automated exposure control, adjustment of the mA and/or kV according to patient size, and/or utilization of iterative reconstruction technique.FINDINGS: There is no acute intracranial hemorrhage or extra-axial collection. The camarena-white matter differentiation is well-preserved without evidence of edema or acute infarct. There is no hydrocephalus, midline shift, or mass effect.The cranial vaultand skull base are intact. The paranasal sinuses and mastoid air cells are pneumatized and well-aerated.IMPRESSION: No acute intracranial abnormalityLocation: R16 Final Dictated by: MD Vargas Adam FDictated DT/TM: 02/11/2018 3:11 pmSigned by: MD Vargas Adam FSigned (Electronic Signature): 02/11/2018 3:13 pmXR Hand Complete 3+ Views [id number] 14:38:04Patient: JL AGUILERA Date/Time02/11/2018 14:24 CSTReason for ExamInjuryReportLocation R 16Exam:Right Hand, 3 ViewsHistory: Injury. Splinted.Swelling at the ring fingerComparison: None availableFindings:The second and third fingers are splinted. No clear underlying fracture is identified.Fourth digit (ring finger) appears intact and well ali gned.No acute osseous abnormalities are seen.Impression:1. Second and third fingers are splinted. Noclear underlying fracture is identified.2. Fourth digit (ring finger) appears intact and well aligned. Final Dictated by: MD Miller Eniola FDictated DT/TM: 02/11/2018 2:34 pmSigned by: MD Miller Eniola FSigned (Electronic Signature): 02/11/2018 2:[address] HEAD OR BRAIN WO [id number] 14:01:05CT HEAD WITHOUT CONTRASTLOCATION: [id number]: NoneINDICATION: head injury 2/2 seizureTechnique: Noncontrast axial scans were obtained from skull base to the vertex. Coronal and sagittal reconstructions obtained from the axial data. Oneor more of the following dose reduction techniques were used: Automatedexposure control, adjustment of the mA and/or kV according to patientsize, and/or utilizationof iterative reconstruction technique.DISCUSSION:Scalp/Skull:Unremarkable.Brain sulci: Appropriate for patient's age.Ventricles: Normal in size and configuration. No hydrocephalus.Extra-axial spaces:No masses or fluid collections.Parenchyma: No definite abnormal densities.No masses, hemorrhage, or large vascular territory acute infarct.Dural sinuses: No abnormal densities.Sellar/Suprasellar region: Intact.Skull base: Intact.Incidental findings: None.IMPRESSION:No intracranial abnormalities.Phenytoin (Dilantin), [id number] 13:18:00 Test Item Value Reference Range Interpretation Comments Phenytoin (test code = PHY) 3.7 ug/mL 10.0-20.0 L RPR, [id number] 12:14:00 Test Item Value Reference Range Interpretation Comments RPR (test code = RPR) Non-Reactive Non-Reactive N [id number] 11:11:00 Test Item Value Reference Range Interpretation Comments Frederica (test code = 0.00 mmol/L 0.6-1.2 L VERIFIE D BY REPEAT LI) TESTING Thyroid Stimulating Hormone (TSH)2017-05-06 09:59:00 Test Item Value Reference Range Interpretation Comments TSH (test code = TSH) 1.39 mIU/mL 0.270-4.200 N Lipid [id number] 07:35:00 Test Item Value Reference Range Interpretation Comments Cholesterol (test 236 mg/dL 0-200 H code = CHOL) Triglycerides (test 136 mg/dL 9-200 N code = TRIG) HDL (test code = 62 mg/dL 50-60 H HDL) Chol/HDL (test code 3.8 Ratio 0.0-4.4 N = CHOLPHDL) LDL, Calculated 147 0-130 H (NOTE)RISK O F HEART (test code = LDLC) DISEASEPu blished by [place] Heart AssociationAnal yte Optim al Boderline Increased RiskC HOL <200 200-239 >240TRI G <150 150-199 >200HDL Male: >60 <40HDL Female: >60 <50 LDL < 100 130-15 9 >160 LDL NEAR OPTIMAL IS 100- 129 VLDL (test code = 27 mg/dL 5-40 N VLDL) LDL/HDL (test code = 2 LDLPHDL)
== END 2020-01-09 02:30 | disposition home or self-care (01) ==
LOC: ER 21:17
DX: E87.6 Hypokalemia (principal); N39.0 Urinary tract infection, site not specified; F17.210 Nicotine dependence, cigarettes, uncomplicated; F31.9 Bipolar disorder, unspecified; Z88.0 Allergy status to penicillin
CPT/HCPCS: 36415; 80048; 80076; 80307; 80320; 80329; 81003; 81025; 85025; 85610; 85730; 87077; 87086; 87088; 87186; 93005; 96361; 96365; 96367; 99285; J0696; J1953; J7030

== ENCOUNTER 2020-01-12 10:57 | Emergency (ER) | payer SELFPAY ==
[2020-01-12] MEDS ORDERED: NA CHLORIDE 0.9% 1,000 ML ONE (11:21)
[2020-01-12] MEDS ORDERED: LORazepam 2 MG/ML VIAL ONE (11:21)
[2020-01-12 12:28] LABS: BUN Blood Urea Nitrogen 7 mg/dL (7-18); Bicarbonate 25 mmol/L (21-32); Glucose Level 82 mg/dL (74-106); Sodium Level 138 mmol/L (136-145)
[2020-01-12 12:31] LABS: Basophils % 0.8 % (0-1.3); Lymphocytes % 20.2 % (15.3-44.8); MPV 8.3 fL (7.6-11.3); RBC Red Blood Cell Count 4.18 M/uL (3.86-4.86)
[2020-01-12 13:25] LABS: Urine Trichomonas PRESENT (NONE SEEN)
[2020-01-12 13:27] LABS: Urine Bacteria <20 /HPF (<20); Urine Culture Reflex Order REFLEXED; Urine RBC <5 /HPF (NONE SEEN)
[2020-01-12 13:49] LABS: Urine Blood NEGATIVE (NEG); Urine Glucose NEGATIVE (NEG); Urine Protein NEGATIVE (NEG); Urine pH 7.5 (5.0-7.0)
--- NOTE | 2020-01-12 13:58 | EDPHYS ---
Physician Documentation [facility] Name: Hodan Quinonez Age: 39 yrs Sex: Female : 1980 Arrival Date: 01/12/2020 Time: 11:03 Bed 16 Private MD: ED Physician Eyal Aguirre HPI: 01/11 13:16 This 39 yrs old Female presents to ER via EMS with complaints of Seizure. rn 13:16 The patient presents after having a single isolated seizure. Seizure onset: just prior rn to arrival. Associated injury: The patient did not suffer any apparent associated injury. Current symptoms: Currently, the patient is not experiencing any symptoms. The patient has experienced similar episodes in the past. The patient has been recently seen at the [facility] Emergency Department. 13:55 Pt in rehab, last use of heroin 8 days ago, feeling ok lately, seen for seizures a few rn days ago, states compliant, no head injury or trauma. NO fever. . Historical: - Allergies: 11:12 PENICILLINS; iw - Home Meds: 11:18 Trileptal 600 mg oral tab three times a day [Active]; venlafaxine 150 mg oral tr24 1 iw tab once daily [Active]; venlafaxine 75 mg oral cp24 1 cap once daily [Active]; aripiprazole 5 mg oral tab twice a day [Active]; buprenorphine-naloxone buccal buccal once daily [Active]; oxcarbazepine 600 mg oral tab three times a day [Active]; Cipro 250 mg Oral tab 1 tab every 12 hours [Active]; - PMHx: 11:12 Anxiety; Bipolar disorder; Depression; Personality Disorder; Seizures; iw - PSHx: 11:12 ; iw - Immunization history:: Adult Immunizations not up to date. - Social history:: Smoking status: Patient reports the use of cigarette tobacco products, smokes one pack cigarettes per day. - Family history:: not pertinent. - Hospitalizations: : No recent hospitalization is reported. ROS: 13:55 Constitutional: Negative for fever, chills, and weight loss, Eyes: Negative for injury, rn pain, redness, and discharge, Cardiovascular: Negative for chest pain, palpitations, and edema, Respiratory: Negative for shortness of breath, cough, wheezing, and pleuritic chest pain, Abdomen/GI: Negative for abdominal pain, nausea, vomiting, diarrhea, and constipation, MS/Extremity: Negative for injury and deformity, Skin: Negative for injury, rash, and discoloration, Neuro: Negative for headache, weakness, numbness, tingling Exam: 13:55 Constitutional: This is a well developed, well nourished patient who is awake, alert, rn and in no acute distress. Head/Face: Normocephalic, atraumatic. Eyes: Pupils equal round and reactive to light, extra-ocular motions intact. Lids and lashes normal. Conjunctiva and sclera are non-icteric and not injected. Cornea within normal limits. Periorbital areas with no swelling, redness, or edema. Cardiovascular: Regular rate and rhythm. No pulse deficits. Respiratory: No increased work of breathing, no retractions or nasal flaring. Abdomen/GI: Soft, non-tender MS/ Extremity: Pulses equal, no cyanosis. Neurovascular intact. Full, normal range of motion. Equal circumference. Neuro: Awake and alert, GCS 15, oriented to person, place, time, and situation. Cranial nerves II-XII grossly intact. Motor strength 5/5 in all extremities. Sensory grossly intact. Cerebellar exam normal. Vital Signs: 11:07 BP 125 / 88; Pulse 74; Resp 16; Temp 98.0; Pulse Ox 99% on R/A; Weight 73.94 kg; Height iw 5 ft. 6 in. (167.64 cm); Pain 7/10; 12:15 BP 126 / 86; Pulse 85; Resp 16; Pulse Ox 100% ; sv 11:07 Body Mass Index 26.31 (73.94 kg, 167.64 cm) iw [place] Coma Score: 11:30 Eye Response: spontaneous(4). Verbal Response: oriented(5). Motor Response: obeys sv commands(6). Total: 15. MDM: 11:03 Patient medically screened. rn 13:55 Differential diagnosis: seizure. Differential diagnosis: drug withdrawal. Data rn reviewed: vital signs, nurses notes. Counseling: I had a detailed discussion with the patient and/or guardian regarding: the historical points, exam findings, and any diagnostic results supporting the discharge/admit diagnosis, lab results, the need for outpatient follow up, to return to the emergency department if symptoms worsen or persist or if there are any questions or concerns that arise at home. Response to treatment: the patient's symptoms have resolved after treatment, the patient's condition has returned to base line, and as a result, I will discharge patient. Special discussion: I discussed with the patient/guardian in detail that at this point there is no indication for admission to the hospital. It is understood, however, that if the symptoms persist or worsen the patient needs to return immediately for re-evaluation. 01/11 11:05 Order name: CBC with Diff; Complete Time: 12:52 rn 01/11 11:05 Order name: Basic Metabolic Panel; Complete Time: 12:52 rn 01/11 11:05 Order name: Urine Microscopic Only; Complete Time: 13:51 rn 01/11 13:28 Order name: Urine Culture EDMS 01/11 13:45 Order name: Urine Dipstick--Ancillary (enter results); Complete Time: 13:51 bd 01/11 13:45 Order name: Urine --Ancillary (enter results); Complete Time: 13:51 bd 01/11 11:05 Order name: IV Start; Complete Time: 11:39 rn 01/11 11:05 Order name: Urine Dipstick-Ancillary (obtain specimen); Complete Time: 13:02 rn 01/11 11:05 Order name: EKG - Nurse/Tech; Complete Time: 11:38 rn 01/11 11:05 Order name: EKG; Complete Time: 11:05 rn Administered Medications: 11:38 Drug: Ativan 1 mg Route: IVP; Site: right upper arm; vg1 12:00 Follow up: Response: No adverse reaction sv 11:38 Drug: NS 0.9% 1000 ml Route: IV; Rate: 1000 ml; Site: right upper arm; vg1 13:00 Follow up: Response: No adverse reaction; IV Status: Completed infusion; IV Intake: sv 1000ml Disposition: 01/12/20 13:57 Discharged to Home. Impression: Epilepsy and recurrent seizures. - Condition is Stable. - Discharge Instructions: Seizure, Adult, Urinary Tract Infection, Adult. - Prescriptions for Macrobid 100 mg Oral Capsule - take 1 capsule by ORAL route every 12 hours for 10 days; 20 capsule. - Medication Reconciliation Form, Thank You Letter, Antibiotic Education, Prescription Opioid Use form. - Follow up: Private Physician; When: As needed; Reason: Recheck today's complaints, Re-evaluation by your physician. - Problem is new. - Symptoms have improved. Signatures: Dispatcher [employer] Shima Edmondson RN Tawny Burris RN RN iw Nieto, Roman, MD MD rn Garcia, Faiza, RN RN vg1 Corrections: (The following items were deleted from the chart) 14:09 13:57 01/12/2020 13:57 Discharged to Home. Impression: Epilepsy and recurrent seizures. sv Condition is Stable. Forms are Medication Reconciliation Form, Thank You Letter, Antibiotic Education, Prescription Opioid Use. Follow up: Private Physician; When: As needed; Reason: Recheck today's complaints, Re-evaluation by your physician. Problem is new. Symptoms have improved. rn
--- NOTE | 2020-01-12 13:58 | ER ---
Nurse's Notes [facility] Name: Hodan Quinonez Age: 39 yrs Sex: Female : 1980 Arrival Date: 01/12/2020 Time: 11:03 Bed 16 Private MD: Diagnosis: Epilepsy and recurrent seizures Presentation: 01/11 11:07 Chief complaint: EMS states: seizure X 2 on Saturday, seizure this morning, [facility], last used heroin 8 days ago, +hx of seizures, takes Trileptal , last seizure before Saturday was a year ago, pt A\T\OX4, c/o headache. Coronavirus screen: At this time, the client does not indicate any symptoms associated with coronavirus-19. Ebola Screen: Patient negative for fever greater than or equal to 101.5 degrees Fahrenheit, and additional compatible Ebola Virus Disease symptoms Patient denies exposure to infectious person. Patient denies travel to an Ebola-affected area in the 21 days before illness onset. No symptoms or risks identified at this time. Initial Sepsis Screen: Does the patient meet any 2 criteria? No. Patient's initial sepsis screen is negative. Does the patient have a suspected source of infection? No. Patient's initial sepsis screen is negative. Risk Assessment: Do you want to hurt yourself or someone else? Patient reports no desire to harm self or others. Onset of symptoms was January 12, 2020. 11:07 Method Of Arrival: EMS: [facility] iw 11:07 Acuity: ASHLI 3 iw Historical: - Allergies: 11:12 PENICILLINS; iw - Home Meds: 11:18 Trileptal 600 mg oral tab three times a day [Active]; venlafaxine 150 mg oral tr24 1 iw tab once daily [Active]; venlafaxine 75 mg oral cp24 1 cap once daily [Active]; aripiprazole 5 mg oral tab twice a day [Active]; buprenorphine-naloxone buccal buccal once daily [Active]; oxcarbazepine 600 mg oral tab three times a day [Active]; Cipro 250 mg Oral tab 1 tab every 12 hours [Active]; - PMHx: 11:12 Anxiety; Bipolar disorder; Depression; Personality Disorder; Seizures; iw - PSHx: 11:12 ; iw - Immunization history:: Adult Immunizations not up to date. - Social history:: Smoking status: Patient reports the use of cigarette tobacco products, smokes one pack cigarettes per day. - Family history:: not pertinent. - Hospitalizations: : No recent hospitalization is reported. Screenin:32 Abuse screen: Denies threats or abuse. Denies injuries from another. Nutritional sv screening: No deficits noted. Tuberculosis screening: No symptoms or risk factors identified. Fall Risk None identified. Assessment: 11:30 General: Appears in no apparent distress. comfortable, well groomed, well developed, sv Behavior is calm, cooperative, appropriate for age. Pain: Complains of pain in face Pain currently is 7 out of 10 on a pain scale. Pain began this morning Is intermittent. Neuro: Level of Consciousness is awake, alert, obeys commands, Oriented to person, place, time, situation, Moves all extremities. Full function Speech is normal. Respiratory: Airway is patent Respiratory effort is even, unlabored, Respiratory pattern is regular, symmetrical. Derm: Skin is pink, warm \T\ dry. Musculoskeletal: Range of motion: intact in all extremities. 11:39 Reassessment: Called inside lab to come collect blood from pt. sv 12:20 Reassessment: Patient appears in no apparent distress at this time. No changes from sv previously documented assessment. Patient and/or family updated on plan of care and expected duration. Pain level reassessed. Patient is alert, oriented x 3, equal unlabored respirations, skin warm/dry/pink. 12:50 Reassessment: Pt asking for food, ok by Dr Aguirre for pt to eat. Pt given sandwich, sv chips, and a drink. 13:42 Reassessment: Patient appears in no apparent distress at this time. No changes from sv previously documented assessment. 14:06 Reassessment: Patient appears in no apparent distress at this time. No changes from sv previously documented assessment. Patient and/or family updated on plan of care and expected duration. Pain level reassessed. Patient is alert, oriented x 3, equal unlabored respirations, skin warm/dry/pink. Vital Signs: 11:07 BP 125 / 88; Pulse 74; Resp 16; Temp 98.0; Pulse Ox 99% on R/A; Weight 73.94 kg; Height iw 5 ft. 6 in. (167.64 cm); Pain 7/10; 12:15 BP 126 / 86; Pulse 85; Resp 16; Pulse Ox 100% ; sv 11:07 Body Mass Index 26.31 (73.94 kg, 167.64 cm) [place] Coma Score: 11:30 Eye Response: spontaneous(4). Verbal Response: oriented(5). Motor Response: obeys sv commands(6). Total: 15. ED Course: 11:03 Patient arrived in ED. rn 11:03 Eyal Aguirre MD is Attending Physician. rn 11:04 Shima Barclay RN is Primary Nurse. sv 11:12 Triage completed. iw 11:30 Inserted saline lock: 24 gauge in right upper arm, using aseptic technique. Flushed sv right with 2 ml normal saline. 11:30 Patient has correct armband on for positive identification. Bed in low position. Call sv light in reach. Side rails up X2. Seizure precautions initiated. 11:30 Pulse ox on. NIBP on. sv 11:30 Arm band placed on. sv 14:07 No provider procedures requiring assistance completed. IV discontinued, intact, sv bleeding controlled, No redness/swelling at site. pt took her own IV out. Administered Medications: 11:38 Drug: Ativan 1 mg Route: IVP; Site: right upper arm; vg1 12:00 Follow up: Response: No adverse reaction sv 11:38 Drug: NS 0.9% 1000 ml Route: IV; Rate: 1000 ml; Site: right upper arm; vg1 13:00 Follow up: Response: No adverse reaction; IV Status: Completed infusion; IV Intake: sv 1000ml Intake: 13:00 IV: 1000ml; Total: 1000ml. sv Outcome: 13:57 Discharge ordered by . rn 14:07 Discharged to Rehab Facility sv 14:07 Condition: stable 14:07 Discharge instructions given to patient, Instructed on discharge instructions, follow up and referral plans. medication usage, Demonstrated understanding of instructions, follow-up care, medications, Prescriptions given X 1. 14:09 Patient left the ED. sv Signatures: Shima Barclay, Tawny Burris RN RN AALIYAH Eyal Aguirre MD MD rn Garcia, Victoria, RN RN vg1
[2020-01-12 14:19] VITALS: TEMP 98
[2020-01-12 14:20] VITALS: BP 126/86; O2SAT 100
--- NOTE | 2020-01-13 05:57 | EKG ---
Test Date: 2020-01-12 Test Time: 11:17:53 [employer] Solderer: SHIREEN MEASUREMENT RESULTS: Intervals: Rate: 72 LA: 162 QRSD: 92 QT: 406 QTc: 444 [place]: P: 45 LA: 162 QRS: 43 T: 63 INTERPRETIVE STATEMENTS: Normal sinus rhythm Normal ECG Compared to ECG 01/08/2020 21:37:12 No significant changes Electronically Signed On 01-13-20 05:55:41 CDT by Evan Marie
--- OUTSIDE RECORDS SUMMARY | 2020-01-14 13:29 | XMS REPORT | Continuity of Care Document ---
:1980 Author Organization [facility] t Address [address] [place] [address] Care Team Providers Name Role Phone UNKNOWN [...] Date Date Clinician [place] DA Active SV 0 [facility]11 [facility] Pen[facility] DA Active SV 2017-04 [facility] ins 1-28 [place] 00:00: [place] 00 [facility] Penicill DA Active PR 2016-04 [facility] ins 0-17 [place] 00:00: [facility] 00 dic H[facility] l Medications This patient has no known medications. Procedures This patient has no known procedures. Encounters Start End Encounter Admission Attending Care Care Encounter Source Date/Time Date/Time Type Type Clinicians Facility Department ID 2017-05-06 2017-05-10 Inpatient [facility] [id number] [facility] 02:25:00 13:42:00 [facility] 2016-08-29 2016-10-20 Outpatient [facility] [id number] [address] [place] [address] 00:00:00 00:00:00 [facility] 2016-10-11 2016-10-11 Outpatient [facility] [id number] [address] [place] [address] 10:45:01 10:45:01 [facility] Results Test Description Test Time Test [...] mg/dL 8.5-10.1 N [V.LAB. 05/22/19 0051]BASIC METABOLIC [id number] 08:10:00 Test Item Value Reference Range Interpretation [...] CA) mg/dL 8.5-10.1 [V.LAB. 05/22/19 0051]CBC W/AUTO [id number] 07:51:00 Test Item Value Reference Range Interpretation [...] code = NRBC#) [V.LAB. 05/22/19 0051]BASIC METABOLIC [id number] 22:41:00 Test Item Value Reference Range Interpretation [...] GFR) formula.Chronic kidney disease is defined as [facility] er kidney damageor GFR <60 mL/min/1.73 m2 for >3 months. CREATININE (test code 0.50 mg/dL 0.55-1.02 L Note change in = CREAT) reference range due to change in reagent. BUN/CREATININE RATIO 18.0 10-20 N (test code = BUN/CREA) CALCIUM (test code = 8.9 mg/dL 8.5-10.1 N CA) HEPATIC FUNCTION [id number] 22:41:00 Test Item Value Reference Range Interpretation [...] range due ALKP) to change in reagent. [id number] 22:41:00 Test Item Value Reference Range Interpretation Comments LIPASE (test code = LIP) 100 U/L 73.0-393.0 N HCG SERUM [id number] 22:41:00 Test Item Value Reference Range Interpretation Comments HCG SERUM QUAL (test NEGATIVE NEGATIVE This HC GQL test is NOT code = HCGQL) applicable for MALE patients.Check with nurse about probable order error.If Tumor Marker Test needed, nu rse should order test "HCG TU"(Test #550.19892)---- - [id number] 22:41:00 Test Item Value Reference Range Interpretation Comments TROPONIN-I (test code = TROPI) <0.015 ng/mL 0-0.045 N [id number] 22:41:00 Test Item Value Reference Range Interpretation [...] AT [facility] AD[facility] BASIC METABOLIC [id number] 22:31:00 Test Item Value Reference Range Interpretation [...] code = CA) mg/dL 8.5-10.1 HEPATIC FUNCTION [id number] 22:31:00 Test Item Value Reference Range Interpretation [...] TOTAL (test IUnit/L 45-117 code = ALKP) [id number] 22:31:00 Test Item Value Reference Range Interpretation Comments LIPASE (test code = LIP) U/L 73.0-393.0 HCG SERUM [id number] 22:31:00 Test Item Value Reference Range Interpretation Comments HCG SERUM QUAL (test code = HCGQL) NEGATIVE [id number] 22:31:00 Test Item Value Reference Range Interpretation Comments TROPONIN-I (test code = TROPI) ng/mL 0-0.045 [id number] 22:31:00 Test Item Value Reference Range Interpretation Comments ALCOHOL (test code = ALC) mg/dL 0-3 BASIC METABOLIC [id number] 22:31:00 Test Item Value Reference Range Interpretation [...] code = CA) mg/dL 8.5-10.1 HEPATIC FUNCTION [id number] 22:31:00 Test Item Value Reference Range Interpretation [...] TOTAL (test IUnit/L 45-117 code = ALKP) [id number] 22:31:00 Test Item Value Reference Range Interpretation Comments LIPASE (test code = LIP) U/L 73.0-393.0 HCG SERUM [id number] 22:31:00 Test Item Value Reference Range Interpretation Comments HCG SERUM QUAL (test NEGATIVE NEGATIVE This HC GQL test is NOT code = HCGQL) applicable for MALE patients.Check with nurse about probable order error.If Tumor Marker Test needed, nu rse should order test "HCG TU"(Test #550.75862)---- - [id number] 22:31:00 Test Item Value Reference Range Interpretation Comments TROPONIN-I (test code = TROPI) ng/mL 0-0.045 [id number] 22:31:00 Test Item Value Reference Range Interpretation Comments ALCOHOL (test code = ALC) mg/dL 0-3 - CT HEAD/BRAIN W/O [id number] 22:29:00 Name: JL AGUILERA [facility] : 1980 Age/S: 39 / F [address] [facility] Unit #: [id number] Loc: JAYME Florez [address] Phys: Pradip Hoyt MD Acct: [id number] Dis Date: Status: REG ER PHONE #: [phone] Exam Date: 05/20/20192218 FAX #: [phone] Reason: Seizure EXAMS: CPTCODE: [id number] CT HEAD/BRAIN W/O CONT 25889 Exam: CT head without contrast. Location: H [...] Otero M.D. CC: Pradip Hoyt MD Technologist:Nicolette Montemayor RT(R); SASCHA Clark CTDI: DLP: Trnscb Date/Time: 05/20/2019 (4909) t.[email or web address].FC Orig Print D/T: S: 05/20/2019 (7377) PAGE 1 Signed ReportCBC W/O [id number] 22:20:00 Test Item Value Reference Range Interpretation [...] fL 6.7-11.0 N = MPV) CBC W/O [id number] 22:18:00 Test Item Value Reference Range Interpretation [...] 6.7-11.0 = MPV) - XR CHEST 1 [id number] 19:55:00 FAX: Pradip Hoyt MD [phone] [place]: St: REG Name: JL AGUILERA [facility] : 1980 Age/S: 39/F [address] Unit#: [id number] Loc: [place] [address] Phys: Pradip Hoyt MD Acct: [id number] Dis Date: Status: REG ER PHONE #: [phone] Exam Date: 05/20/20191914 FAX #: [phone] Reason: Seizure EXAMS: CPT CODE: [id number] XR CHEST 1 V 31216 EXAM: Chest x-ray, one view; INFORMATION: Seizure; IMPRESSION: 1. No evidence of active cardiopulmonary disease. 2. No significant change compared with a study from March 28, 2019. Location code: [facility] at 1954 Reported and signed by: Shawn Lock M.D. CC: Pradip Hoyt MD Technologist: REENA MIRAMONTES (R) Trnscrd Date/Time/By: 05/20/2019 (1954) : By: RenGRWOrig Print D/T: S: 05/20/2019 (1957) PAGE 1 Signed ReportCHEMISTRY 8 [id number] 13:32:00 Test Item Value Reference Range Interpretation [...] ML/MIN (test code = GFRBED) CHEMISTRY 8 [id number] 13:32:00 Test Item Value Reference Range Interpretation Comments ISTAT-SODIUM (test 136 MMOL/L 134-147 N code = NAP) ISTAT-POTASSIUM (test 3.6 MMOL/L 3.4-5.0 N code = KP) ISTAT-CHLORIDE (test 102 MMOL/L 100-108 N Perform ed by code = CLP) certified opera tor at [facility] ISTAT CARBON DIOXIDE 26.0 mmol/L 21-33 N (test code = ISTAT-CO2) ISTAT CALCIUM IONIZED 1.06 MG/DL 1.12-1.32 L (test code = ISTAT-SUSAN) ISTAT-GLUCOSE (test 96 MG/DL 70-110 N code = GLUP) ISTAT-BUN (test code = 7 MG/DL 7-18 N BUNP) BEDSIDE CREATININE 0.5 MG/DL 0.6-1.3 L (test code = CREATBED) GLOMERULAR FILTRATION 146 ML/MIN RATE POC (test code = GFRBED) HEPATIC FUNCTION [id number] 04:06:00 Test Item Value Reference Range Interpretation [...] IUnit/L 20-125 N code = ALKP) OXCARBAZEPINE [id number] 04:06:00 Test Item Value Reference Interpretation Comments Range OXCARBAZEPINE 49 ug/mL 10-35 A This test was developed and TRILEPTAL (test its performa nce code = OXCARB) characteristi csdetermined by [facility]. It has not been cleared orappro katerina by the Food and Drug A dministration. Detection Limi t = 1Performed At: [facility] [address] José [place], [place] [id number] ra David CARTAGENA Ph:[phone] [id number] 04:06:00 Test Item Value Reference Range Interpretation Comments ALCOHOL (test code < 0.003 G/dL <0.003 Ethyl Alc ohol = ALC) Interpretation: 0.100 gm/dL - Legally Intoxic ated 0.300-0.40 0 gm/dL - Severely Into xicated >0.400 gm/dL - Potentially LethalResults a re for Medical purpose s only, and not for Leg al orEmployment ev aluation purposes. - CT HEAD/BRAIN W/O [id number] 23:27:00 Name: JL AGUILERA [facility] : 1980 Age/S: 39 / F [address] [place] [address] Unit #: [id number] Loc: [place], [place] Phys: Alpesh Rocha MD Acct: [id number] Dis Date: Status: REG ER PHONE #: [phone] Exam Date: 03/28/2019 2309 FAX #: [phone] Reason: Altered Mental Status EXAMS: CPTCODE: [id number] CT HEAD/BRAIN W/O CONT 33391 Patient: JL AGUILERA. : 1980; Age: 39 years; Gender: Female. MR: [id number]. Ordering physician: Alpesh Rocha MD. CT HEAD [...] 1 Signed Report (CONTINUED) Name: JL AGUILERA [facility] : 1980 Age/S: 39 / F [address] [place] [address] Unit #: [id number] Loc: [place] [address] Phys: Alpesh Rocha MD Acct: [id number] Dis Date: Status: REG ER PHONE #: [phone] Exam Date: 03/28/2019 2309 FAX #: [phone] Reason: Altered Mental Status EXAMS: CPT CODE: [id number] CT HEAD/BRAIN W/O CONT 08498 <Continued> SL: SL-H at 3192 Reported and signed by: Felipe Roy M.D. CC: Alpesh Rocha MD Technologist:RT Milly(R)(CT) CTDI: DLP: Trnscb Date/Time: 03/28/2019 (9360) [email or web address] Orig Print D/T: S: 03/28/2019 (5055) PAGE 2 Signed ReportDRUGS OF ABUSE SCREEN [id number] 23:25:00 Test Item Value Reference Range Interpretation [...] non-medical pur poses. DRUGS OF ABUSE SCREEN [id number] 23:16:00 Test Item Value Reference Range Interpretation [...] us ed for non-medical pur poses. URINALYSIS [id number] 23:14:00 Test Item Value Reference Range Interpretation [...] 2+ /LPF NONE SEEN A HEPATIC FUNCTION [id number] 22:59:00 Test Item Value Reference Range Interpretation [...] IUnit/L 20-125 N code = ALKP) OXCARBAZEPINE [id number] 22:59:00 Test Item Value Reference Range Interpretation Comments OXCARBAZEPINE TRILEPTAL (test code = OXCARB) [id number] 22:59:00 Test Item Value Reference Range Interpretation Comments ALCOHOL (test code < 0.003 G/dL <0.003 Ethyl Alc ohol = ALC) Interpretation: 0.100 gm/dL - Legally Intoxic ated 0.300-0.40 0 gm/dL - Severely Into xicated >0.400 gm/dL - Potentially LethalResults a re for Medical purpose s only, and not for Leg al orEmployment ev aluation purposes. CBC W/AUTO [id number] 22:42:00 Test Item Value Reference Range Interpretation [...] NO = MDIFF) - XR CHEST 1 [id number] 22:28:00 FAX: Alpesh Crowe MD [phone] [place]: St: REG Name: JL AGUILERA [facility] : 1980 Age/S: 39/F [address] [place] [address] Unit#: [id number] Loc: [place] [address] Phys: Alpesh Rocha MD Acct: [id number] Dis Date: Status: REG ER PHONE #: [phone] Exam Date: 03/28/20192219 FAX #: [phone] Reason: Altered Mental Status EXAMS: CPT CODE: [id number] XR CHEST 1 V 85604 Patient: JL AGUILERA. : 1980; Age: 39 years; Gender: Female. MR: [id number]. Ordering physician: Alpesh Rocha MD. PORTABLE CHEST [...] RT(R); Marek Chow, RT(R) Trnscrd Date/Time/By: 03/28/2019 (2049) : By: RenSL7 Orig Print D/T: S: 03/28/2019 (3159) PAGE 1 Signed ReportTROPONIN-I [id number] 22:24:00 Test Item Value Reference Range Interpretation Comments TROPONIN-I RAPID 0.00 ng/mL 0.00-0.08 N Performed b y certified (test code = ferryboat operator cable at [facility] Negative: <= 0.0 8 Positive: >= [...] changes in trop onin levels characteristic of ME. LACTIC ACID [id number] 22:15:00 Test Item Value Reference Range Interpretation Comments LACTIC ACID POC 1.9 MMOL/L 0.90-1.70 H Performed by certified (test code = LACTP) ferryboat operator cable at [facility] [id number] 15:42:00 Test Item Value Reference Range Interpretation Comments ALCOHOL (test code < 0.003 G/dL <0.003 Ethyl Alc ohol = ALC) Interpretation: 0.100 gm/dL - Legally Intoxic ated 0.300-0.40 0 gm/dL - Severely Into xicated >0.400 gm/dL - Potentially LethalResults a re for Medical purpose s only, and not for Leg al orEmployment ev aluation purposes. BASIC METABOLIC [id number] 15:42:00 Test Item Value Reference Range Interpretation [...] 8.6 mg/dL 8.0-10.5 N CA) HEPATIC FUNCTION [id number] 15:42:00 Test Item Value Reference Range Interpretation [...] 20-125 N code = ALKP) HCG SERUM [id number] 15:42:00 Test Item Value Reference Range Interpretation Comments HCG SERUM QUAL (test code = SERUM NEGATIVE NEGATIVE HCGQL) BASIC METABOLIC [id number] 15:39:00 Test Item Value Reference Range Interpretation [...] CA) 8.6 mg/dL 8.0-10.5 N HEPATIC FUNCTION [id number] 15:39:00 Test Item Value Reference Range Interpretation [...] IUnit/L 20-125 code = ALKP) HCG SERUM [id number] 15:39:00 Test Item Value Reference Range Interpretation Comments HCG SERUM QUAL (test code = SERUM NEGATIVE NEGATIVE HCGQL) CBC W/O [id number] 15:34:00 Test Item Value Reference Range Interpretation [...] 7.0-9.0 H code = MPV) BASIC METABOLIC [id number] 15:31:00 Test Item Value Reference Range Interpretation [...] code = CA) mg/dL 8.0-10.5 HEPATIC FUNCTION [id number] 15:31:00 Test Item Value Reference Range Interpretation [...] IUnit/L 20-125 code = ALKP) HCG SERUM [id number] 15:31:00 Test Item Value Reference Range Interpretation Comments HCG SERUM QUAL (test code = SERUM NEGATIVE NEGATIVE HCGQL) DRUGS OF ABUSE SCREEN [id number] 14:53:00 Test Item Value Reference Range Interpretation [...] non-medical pur poses. DRUGS OF ABUSE SCREEN [id number] 14:42:00 Test Item Value Reference Range Interpretation [...] non-medical pur poses. - XR CHEST 1 [id number] 14:29:00 FAX: Carrington Marks DO [phone] [place]: St: REG Name: JL AGUILERA [facility] : 1980 Age/S: 38/F [address] [place] [address] Unit#: [id number] Loc: [place] [address] Phys: Carrington Guidry DO Acct: [id number] Dis Date: Status: REG ER PHONE #: [phone] Exam Date: 12/17/2018 1417 FAX #: [phone] Reason: cough EXAMS: CPT CODE: [id number] XR CHEST 1 V 05787 1 VIEW CXR. PORTABLE EXAM 2:02 PM HISTORY: Cough. COMPARISON: 08/01/2012 chest x-ray. The lungs are clear with nor mal pulmonary vasculature. Cardiomediastinal silhouette normal. No pleural abnormality. Bony thorax intact. IMPRESSION: Normal exam. END OF IMPRESSION SL: [id number] at 1426 Reported and signed by: Sascha Newell M.D. CC: Carrington Guidry DO Technologist: NIRANJAN Turner) [place] Date/Time/By: 12/17/2018 (142) : By: Yifan OrigErica D/T: S: 12/17/2018 (1618) PAGE 1 Signed ReportURINALYSIS [id number] 14:24:00 Test Item Value Reference Range Interpretation [...] /LPF NONE SEEN A - DUP VEIN UNI/[id number] 13:18:00 Name: JL AGUILERA [facility] : 1980 Age/S: 38 / F [address] [place], [place] [address] Unit #: [id number] Loc: [place] [id number] Phys: Abner Corbin MD Acct: [id number] Dis Date: Status: REG ER PHONE #: [phone] Exam Date: 05/28/2018 1313 FAX #: [phone] Reason: RUE swelling, r/o DVT EXAMS: CPTCODE: [id number] DUP VEIN UNI/LTD 10515 PROCEDURE: UNILATERAL UPPER EXTREMITY VENOUS ULTRASOUND INDICATION: [...] identified in the right upper extremity. SL: [id number] at 1318 Reported and signed by: Bakari Perez M.D. CC: Abner Corbin MD Technologist: Mckayla Aguiar RDMS(OB)(AB) Trnscb Date/Time: 05/28/2018 (1318) RenRH17 Orig Print D/T: S: 05/28/2018 (9812) Probe: PAGE 1 Signed ReportCT Brain/Head w/o [id number] 15:13:34Patient: JL AGUILERA Date/Time11/09/2017 15:08 CSTReason for ExamHead injuryReportCT HEAD WITHOUT [...] 02/11/2018 3:13 pmXR Hand Complete 3+ Views [id number] 14:38:04Patient: JL AGUILERA Date/Time02/11/2018 14:24 CSTReason for [...] 2:[address] HEAD OR BRAIN WO [id number] 14:01:05CT HEAD WITHOUT CONTRASTLOCATION: [id number]: NoneINDICATION: head injury 2/2 seizureTechnique: Noncontrast axial [...] base: Intact.Incidental findings: None.IMPRESSION:No intracranial abnormalities.Phenytoin (Dilantin), [id number] 13:18:00 Test Item Value Reference Range Interpretation Comments Phenytoin (test code = PHY) 3.7 ug/mL 10.0-20.0 L RPR, [id number] 12:14:00 Test Item Value Reference Range Interpretation Comments RPR (test code = RPR) Non-Reactive Non-Reactive N [id number] 11:11:00 Test Item Value Reference Range Interpretation Comments [address] (test code = 0.00 mmol/L 0.6-1.2 L VERIFIE D BY REPEAT LI) TESTING Thyroid Stimulating Hormone (TSH)2017-05-06 09:59:00 Test Item Value Reference Range Interpretation Comments TSH (test code = TSH) 1.39 mIU/mL 0.270-4.200 N Lipid [id number] 07:35:00 Test Item Value Reference Range Interpretation Comments Cholesterol (test 236 mg/dL 0-200 H code = CHOL) Triglycerides (test 136 mg/dL 9-200 N code = TRIG) HDL (test code = 62 mg/dL 50-60 H HDL) Chol/HDL (test code 3.8 Ratio 0.0-4.4 N = CHOLPHDL) LDL, Calculated 147 0-130 H (NOTE)RISK O F HEART (test code = LDLC) DISEASEPu blished by [place] Heart AssociationAnal yte Optim al Boderline Increased RiskC HOL <200 200-239 >240TRI G <150 150-199 >200HDL Male: >60 <40HDL Female: >60 <50 LDL < 100 130-15 9 >160 LDL NEAR OPTIMAL IS 100- 129 VLDL (test code = 27 mg/dL 5-40 N VLDL) LDL/HDL (test code = 2 LDLPHDL)
== END 2020-01-12 14:09 | disposition home or self-care (01) ==
LOC: ER 10:57
DX: G40.802 Other epilepsy, not intractable, without status epilepticus (principal); F17.210 Nicotine dependence, cigarettes, uncomplicated; F31.9 Bipolar disorder, unspecified; Z88.0 Allergy status to penicillin
CPT/HCPCS: 36415; 80048; 81003; 81015; 81025; 85025; 87086; 87088; 93005; 96361; 96374; 99284; J7030